=== PATIENT | male | born 1940 | race African-American/Black ===

== ENCOUNTER 2016-09-24 20:22 | Emergency (ER) | payer MEDICARE, OTHER ==
[~2016-09-24] VITALS: Ht 188 cm; Wt 79.4 kg
[~2016-09-24 20:22] MED LIST: CIPROFLOXACIN500 M2 ORAL; FLOMAX0.4 MG ORAL; KEFLEX500 MG ORAL; NKM
[2016-09-24 20:57] VITALS: BP 119/68
[2016-09-24] MEDS ORDERED: HYDROCORTISONE28 G2 TP (20:58)
[2016-09-24] MEDS ORDERED: BENADRYL25 MG ORAL (20:58)
[2016-09-24 21:05] VITALS: BP 119/68
--- NOTE | 2016-09-24 21:18 | Emergency Room Report ---
History of Present Illness General Chief Complaint: Skin Rash/Abscess Present Illness HPI The patient is a 76-year-old male presenting with total body itching which began one week prior. The patient denies any pain. Patient denies any new usage of clothing, foods, detergents or soaps. Patient denies any known allergies. The patient denies any other symptoms including shortness of breath , chest pain, headache, dizziness, throat tightness, swelling (DEBORAH DAVENPORT P.A.) Allergies: Coded Allergies: No Known Allergies (Unverified , 03/04/14) Patient History Past Medical History: see triage record Pertinent Family History: none Reviewed Nursing Documentation: PMH: Agreed, PSxH: Agreed (DEBORAH DAVENPORT P.AHero) Nursing Documentation-PMH Past Medical History: No Stated History (DEBORAH DAVENPORT P.Alayna) Review of Systems All Other Systems: negative except mentioned in HPI (DEBORAH DAVENPORT P.A.) Physical Exam Vital Signs Date Time Temp Pulse Resp B/P Pulse Ox O2 Delivery O2 Flow Rate FiO2 09/24/16 20:35 98.2 77 18 110/62 97 Room Air Sp02 EP Interpretation: reviewed, normal General Appearance: no apparent distress, alert, GCS 15, non-toxic Head: normocephalic, atraumatic Eyes: bilateral eye PERRL, bilateral eye normal inspection ENT: hearing grossly normal, normal pharynx, no angioedema, normal voice Neck: full range of motion, supple/symm/no masses Respiratory: chest non-tender, lungs clear, normal breath sounds, speaking full sentences Cardiovascular #1: regular rate, rhythm, no edema Musculoskeletal: back normal, gait/station normal, normal range of motion, non- tender Neurologic: alert, oriented x3, responsive, motor strength/tone normal, sensory intact, speech normal Psychiatric: judgement/insight normal, memory normal, mood/affect normal, no suicidal/homicidal ideation Skin: normal turgor, rash - diffuse erythematous papules with excoriation markings. No burrows Lymphatic: no adenopathy (DEBORAH DAVENPORT P.A.) Medical Decision Making PA Attestation Dr. Martinez is my supervising physician. Patient management was discussed with my supervising physician (DEBORAH DAVENPORT P.AHero) Medicare Attestation The history of Dandre Vásquez has been reviewed and management options for him have been examined and discussed by Cl Martinez. I have personally examined and interviewed the patient. (CL MARTINEZ M.D.) Diagnostic Impression: Primary Impression: Bed bug bite ER Course The patient is a 76-year-old male presenting with total body itching Ddx considered include but not limited to insect bite, scabies, contact dermatitis, eczema, cellulitis Physical exam: Afebrile. No prior distress There are erythematous papules diffusely over the chest, arms, legs, back, and scalp. No lesions between web spaces are benign knees. No burrowing. Excoriation adame of arms, legs, and upper back. The patient is discharged with a prescription for Benadryl and hydrocortisone. ER precautions are given and the patient is told he may need referral to dermatology (DEBORAH DAVENPORT) Last Vital Signs Date Time Temp Pulse Resp B/P Pulse Ox O2 Delivery O2 Flow Rate FiO2 09/24/16 21:05 98.4 72 14 119/68 98 Room Air Status: improved (DEBORAH DAVENPORT) Disposition: HOME, SELF-CARE Condition: Improved Scripts Diphenhydramine Hcl* (BENADRYL*) 25 Mg Capsule 25 MG ORAL Q6H Y for Itching, #20 CAP Prov: DEBORAH DAVENPORT 09/24/16 Hydrocortisone Acetate 1% Onit (HYDROCORTISONE 1% OINT) Y Oint 1 APPL TP Q12HR, #28 GM Prov: DEBORAH DAVENPORT 09/24/16 Patient Instructions: Rash, Bedbugs Additional Instructions: I discussed my findings with the patient. All questions and concerns have been answered. Treatment and medication compliance have been addressed. I advised the patient that they need to follow up with PMD in 3-5 days. Return to ED if symptoms worsen, new symptoms arise, or if needed for any reason. Patient verbalized understanding of discharge instructions. DEBORAH DAVENPORT Sep 24, 2016 21:18 CL MARTINEZ M.D. Sep 30, 2016 08:55
== END 2016-09-24 21:05 | disposition home or self-care (01) ==
LOC: EMR 20:50
DX: L29.9 Pruritus, unspecified (principal); T14.8 Other injury of unspecified body region; W57.XXXA Bitten or stung by nonvenomous insect and other nonvenomous arthropods, initial encounter; Y92.9 Unspecified place or not applicable; R23.8 Other skin changes
CPT/HCPCS: 99284

== ENCOUNTER 2016-10-04 18:57 | Emergency (ER) | payer MEDICARE, OTHER ==
[~2016-10-04] VITALS: Ht 188 cm; Wt 77.1 kg
[~2016-10-04 18:57] MED LIST changes: +BENADRYL25 MG ORAL; +D5 1/2NS 1,000 ML IV SCH; +HYDROCORTISONE28 G2 TP
[2016-10-04 20:30] VITALS: BP 145/70
[2016-10-04 20:48] LABS: BASOPHILS % (AUTO) 1.7 % (0.0-2.0); EOSINOPHILS % (AUTO) 2.4 % (0.0-3.0); LYMPHOCYTES % (AUTO) 18.1 % (20.0-45.0); MEAN CORPUSCULAR HEMOGLOBIN 32.7 PG (27.0-31.0); MEAN CORPUSCULAR HGB CONC 32.8 G/DL (32.0-36.0); MEAN CORPUSCULAR VOLUME 100 FL (80-99); MEAN PLATELET VOLUME 8.8 FL (6.5-10.1); MONOCYTES % (AUTO) 10.1 % (1.0-10.0); NEUTROPHILS % (AUTO) 67.6 % (45.0-75.0); PLATELET COUNT 292 K/UL (150-450); RED CELL DISTRIBUTION WIDTH 14.8 % (11.6-14.8); WHITE BLOOD COUNT 9.6 K/UL (4.8-10.8)
[2016-10-04 20:59] LABS: INR 1.1 (0.9-1.1); PROTHROMBIN TIME 10.7 SEC (9.30-11.50)
[2016-10-04 21:10] LABS: TROPONIN I < 0.30 ng/mL (<=0.30)
[2016-10-04 21:13] LABS: ALANINE AMINOTRANSFERASE 68 U/L (3-41); ALBUMIN/GLOBULIN RATIO 1.1 (1.0-2.7); ASPARTATE AMINO TRANSFERASE 74 U/L (5-40); CALCIUM 9.7 mg/dL (8.6-10.2); CARBON DIOXIDE 18 mEQ/L (20-30); CREATININE 1.8 mg/dL (0.7-1.2); HEMOLYSIS 0; LIPASE 73 U/L (< 60); SODIUM 138 mEQ/L (135-145); TOTAL PROTEIN 6.9 g/dL (6.6-8.7)
[2016-10-04 21:14] LABS: ANION GAP 20 (5-15); CHLORIDE 100 mEQ/L (98-107); POTASSIUM 3.9 mEQ/L (3.4-4.9)
[2016-10-04 21:25] LABS: AMMONIA 37 umol/L (16-60)
[2016-10-04] MEDS ORDERED: Mylanta II UD 30ml ORAL PRN (22:00)
[2016-10-04] MEDS ORDERED: Morphine Sulfate 2mg/ml Inj IVP PRN (22:00)
[2016-10-04] MEDS ORDERED: Miralax 17gm pkt ORAL PRN (22:00)
[2016-10-04] MEDS ORDERED: Nitroglycerin Subl 0.4mg tab (Bottle Of 25) SL PRN (22:00)
[2016-10-04 22:05] LABS: BILIRUBIN,DIRECT 20.5 mg/dL (0.1-0.3)
[2016-10-04 22:30] VITALS: BP 149/75
[2016-10-04 23:10] VITALS: BP 124/84
[2016-10-05 00:15] VITALS: BP 133/86
--- NOTE | 2016-10-05 04:57 | Emergency Room Report ---
History of Present Illness General Chief Complaint: General Complaint Source: Patient Present Illness HPI Patient presents as someone told him his eyes were yellow. 3 weeks ago, he started having itching. He felt this was due to pulling up a carpet which appeared to have mold. Seen here and dx beg bug bite (09/24) - generalized itching - started 1 week prior. Recently, urine dark and stools beige. No recent travel or raw seafood. No exposure to carbon tetrachloride. No fevers, NVD, cough, sore throat, weakness, extremity pain, palpitations, depression, dizziness, chest pain, abdominal distension. 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 Nursing Documentation: PMH: Agreed, PSxH: Agreed Review of Systems All Other Systems: negative except mentioned in HPI Physical Exam Vital Signs Date Time Temp Pulse Resp B/P Pulse Ox O2 Delivery O2 Flow Rate FiO2 10/04/16 19:07 98.2 86 20 152/66 100 Room Air Sp02 EP Interpretation: reviewed, normal General Appearance: well appearing, no apparent distress, GCS 15 Head: normocephalic Eyes: bilateral eye PERRL, bilateral eye scleral icterus ENT: moist mucus membranes Neck: supple, no bony tend, supple/symm/no masses Respiratory: chest non-tender, lungs clear, normal breath sounds Cardiovascular #1: regular rate, rhythm, no edema Cardiovascular #2: 2+ radial (R) Gastrointestinal: non tender, soft, no mass, no organomegaly, non-distended, no guarding, no rebound Musculoskeletal: normal inspection, digits/nails normal, gait/station normal, normal range of motion Neurologic: alert, oriented x3, grossly normal - josias asterixis Psychiatric: mood/affect normal Skin: jaundice Medical Decision Making Diagnostic Impression: Primary Impression: Obstructive jaundice Additional Impressions: renal failure Suspected malignant neoplasm ER Course Patient presents with painless jaundice. Ddx: duodenal mass, prior stone, PBC, hepatitis amongst others. Emergent evaluation with labs, EKG, CT of abdomen and pelvis. Unexpected renal failure. Elevated bili and LFTs. There are no prior labs to compare. CT with hepatic duct dilatation. Discussed with radiologist. She suggests ERCP. Patient needs further evaluation and continued IV hydration. Advised patient of risk of not coming into the hospital - told of risk of . He understands but states he has to pay the rent. Signed out AMA stating that he would return tomorrow. Laboratory Tests Test 10/04/16 20:26 White Blood Count 9.6 K/UL (4.8-10.8) Red Blood Count 4.20 M/UL (4.70-6.10) L Hemoglobin 13.7 G/DL (14.2-18.0) L Hematocrit 41.8 % (42.0-52.0) L Mean Corpuscular Volume 100 FL (80-99) H Mean Corpuscular Hemoglobin 32.7 PG (27.0-31.0) H Mean Corpuscular Hemoglobin Concent 32.8 G/DL (32.0-36.0) Red Cell Distribution Width 14.8 % (11.6-14.8) Platelet Count 292 K/UL (150-450) Mean Platelet Volume 8.8 FL (6.5-10.1) Neutrophils (%) (Auto) 67.6 % (45.0-75.0) Lymphocytes (%) (Auto) 18.1 % (20.0-45.0) L Monocytes (%) (Auto) 10.1 % (1.0-10.0) H Eosinophils (%) (Auto) 2.4 % (0.0-3.0) Basophils (%) (Auto) 1.7 % (0.0-2.0) Prothrombin Time 10.7 SEC (9.30-11.50) Prothrombin Time INR 1.1 (0.9-1.1) PTT 28 SEC (23-33) Sodium Level 138 mEQ/L (135-145) Potassium Level 3.9 mEQ/L (3.4-4.9) Chloride Level 100 mEQ/L (98-107) Carbon Dioxide Level 18 mEQ/L (20-30) L Anion Gap 20 (5-15) H Blood Urea Nitrogen 30 mg/dL (7-23) H Creatinine 1.8 mg/dL (0.7-1.2) H Estimate Glomerular Filtration Rate mL/min (>60) Glucose Level 112 mg/dL (74-106) H Calcium Level 9.7 mg/dL (8.6-10.2) Total Bilirubin 29.7 mg/dL (0.0-1.2) H Direct Bilirubin 20.5 mg/dL (0.1-0.3) H Aspartate Amino Transferase (AST) 74 U/L (5-40) H Alanine Aminotransferase (ALT) 68 U/L (3-41) H Alkaline Phosphatase 352 U/L (40-129) H Ammonia 37 umol/L (16-60) Troponin I < 0.30 ng/mL (<=0.30) Total Protein 6.9 g/dL (6.6-8.7) Albumin 3.7 g/dL (3.5-5.2) Globulin 3.2 g/dL Albumin/Globulin Ratio 1.1 (1.0-2.7) Lipase 73 U/L (< 60) H CT/MRI/US Diagnostic Results CT/MRI/US Diagnostic Results : Imaging Test Ordered: abdomen and pelvis Impression Impression: Marked dilatation of the intrahepatic bile ducts and common hepatic duct, distended gallbladder. Normal caliber common bile duct. Although an obstructing lesion is not demonstrated, findings are consistent with obstruction at the level of the junction of the common hepatic duct and cystic duct, possibly from occult neoplasm. Consider ERCP for further evaluation Appearance of the ascending colon suggestive of mural pneumatosis. Suspect that this is pseudo-pneumatosis secondary to air between the interface between feces and the colon wall, particularly given the absence of portal venous gas. COPD Diverticulosis. No evidence of diverticulitis [id number] sliding-type hiatal hernia Mild right hydronephrosis and proximal hydroureter, without apparent obstructing lesion, significance/etiology uncertain Degenerative changes of the spine and hips. Last Vital Signs Date Time Temp Pulse Resp B/P Pulse Ox O2 Delivery O2 Flow Rate FiO2 10/05/16 00:15 81 22 131/86 100 Room Air 10/05/16 00:15 98.1 Status: improved Disposition: AGAINST MEDICAL ADVICE Condition: Serious Patient Instructions: Acute Kidney Injury, Jaundice, Adult Additional Instructions: I wanted you to stay in the hospital. Return to the hospital as soon as possible. You need to have studies to find the cause of these problems. Neal Ferrer M.D. Oct 05, 2016 04:57
[2016-10-05] MEDS ORDERED: Heparin 5000 units/ml inj SUBQ SCH (09:00)
--- NOTE | 2016-10-05 09:01 | Diagnostic Imaging Report ---
Indication: Is abdominal distention, jaundice, fatigue x3 days Technique: Spiral acquisitions obtained through the abdomen and pelvis. Patient given oral contrast. No IV contrast utilized, due to history of renal insufficiency.. Multiplanar reconstructions were generated. Total dose length product 699 mGycm. CTDIvol(s) 13 mGy Comparison: None Findings: There is marked dilatation of the intrahepatic bile ducts and common hepatic duct. The gallbladder is distended. There is no distention of the common bile duct, however. The gallbladder distention results in extrinsic compression of the duodenum. 2 small densities are seen between the duodenal wall and the pancreatic head. Significance of these are uncertain. No definite pancreatic mass or gallstones demonstrated. There is colonic diverticulosis. There is questionably pneumatosis of the ascending colon, although this could be an artifact of the interface between stool and the colon wall is very focal. No portal vein gas is demonstrated. The appendix is not definitely demonstrated, but there are no findings to suggest acute appendicitis. No small bowel distention. No small bowel wall thickening. No free or loculated intraperitoneal air or fluid is evident. There is a small to moderate size sliding-type hiatal hernia. Lack of IV contrast limits assessment of solid organs. No definite focal liver lesion is demonstrated. No definite focal pancreatic lesion demonstrated. The spleen, adrenals are unremarkable. There is mild right hydronephrosis and proximal hydroureter, gradually tapering to normal caliber distal ureter. No definite obstructing lesion is demonstrated. The left renal collecting system and ureter unremarkable. No focal renal mass demonstrated. No retroperitoneal or mesenteric mass or adenopathy area the prostate is enlarged. No pelvic mass or adenopathy otherwise. The lung bases demonstrate hyperinflation. There are degenerative changes of the lumbar spine and hips. Impression: Marked dilatation of the intrahepatic bile ducts and common hepatic duct, distended gallbladder. Normal caliber common bile duct. Although an obstructing lesion is not demonstrated, findings are consistent with obstruction at the level of the junction of the common hepatic duct and cystic duct, possibly from occult neoplasm. Consider ERCP for further evaluation Appearance of the ascending colon suggestive of mural pneumatosis. Suspect that this is pseudo-pneumatosis secondary to air between the interface between feces and the colon wall, particularly given the absence of portal venous gas. COPD Diverticulosis. No evidence of diverticulitis [id number]-[id number] sliding-type hiatal hernia Mild right hydronephrosis and proximal hydroureter, without apparent obstructing lesion, significance/etiology uncertain Degenerative changes of the spine and hips. This agrees with the preliminary interpretation provided overnight by [facility] teleradiology service. The CT scanner at [facility] is accredited by the [employer] and the scans are performed using protocols designed to limit radiation exposure to as low as reasonably achievable to attain images of sufficient resolution adequate for diagnostic evaluation.
[2016-10-06] MEDS ORDERED: NKM (06:49)
== END 2016-10-05 01:20 | disposition left against medical advice (07) ==
LOC: EMR 20:46
DX: K83.1 Obstruction of bile duct (principal); N19 Unspecified kidney failure; J44.9 Chronic obstructive pulmonary disease, unspecified; K57.90 Diverticulosis of intestine, part unspecified, without perforation or abscess without bleeding; K44.9 Diaphragmatic hernia without obstruction or gangrene; N13.30 Unspecified hydronephrosis; G31.89 Other specified degenerative diseases of nervous system
CPT/HCPCS: 36415; 74176; 80053; 82140; 82248; 83690; 84484; 85025; 85610; 85730; 96374; 96375

== ENCOUNTER 2016-10-06 05:20 | Inpatient (IN) | payer MEDICARE, OTHER ==
[~2016-10-06] VITALS: Ht 188 cm; Wt 74.8 kg
[~2016-10-06 05:20] MED LIST changes: -D5 1/2NS 1,000 ML IV SCH
--- NOTE | 2016-10-06 05:41 | Emergency Room Report ---
History of Present Illness General Chief Complaint: General Complaint Source: Patient Present Illness HPI Patient is a 76-year-old male who presented after having increased generalized jaundice and itchiness. Patient gradual onset of symptoms. Patient recently been seen in the hospital and was noted to have evidence of obstructive jaundice. The patient left the hospital AGAINST MEDICAL ADVICE. Patient had been having itching for several weeks. He denied any recent fever he had not been vomiting. Allergies: Coded Allergies: No Known Allergies (Unverified , 03/04/14) Patient History Reviewed Nursing Documentation: PMH: Agreed, PSxH: Agreed Nursing Documentation-PMH Past Medical History: No Stated History Review of Systems All Other Systems: negative except mentioned in HPI Physical Exam Sp02 EP Interpretation: reviewed, normal General Appearance: normal inspection, well appearing, no apparent distress, alert, GCS 15 Head: atraumatic Eyes: bilateral eye scleral icterus ENT: normal ENT inspection, hearing grossly normal, normal voice Neck: normal inspection, full range of motion, supple, no bony tend Respiratory: normal inspection, lungs clear, normal breath sounds, no respiratory distress, no retraction, no wheezing Cardiovascular #1: regular rate, rhythm, no edema Gastrointestinal: normal inspection, normal bowel sounds, non tender, soft, no guarding, no hernia Genitourinary: no CVA tenderness Musculoskeletal: normal inspection, back normal, normal range of motion Neurologic: normal inspection, alert, responsive, speech normal Psychiatric: normal inspection, judgement/insight normal, mood/affect normal Skin: normal inspection, no rash, jaundice Medical Decision Making Diagnostic Impression: Primary Impression: Obstructive jaundice Additional Impressions: Bilirubinemia Suspected malignant neoplasm ER Course Patient presented for skin rash. Differential diagnosis included was not limited to obstructive jaundice, common duct stone, hemolysis, pancreatic head mass among others.Because of complexity of patient's case laboratory testing and imaging studies were ordered. The patient was noted to have prior imaging studies which showed evidence of intrahepatic duct dilation. Patient was noted to have a markedly elevated bilirubin. The patient was noted to have a recent CT imaging which showed markedly dilation of gallbladder as well as the intrahepatic ducts. Patient was discussed with Dr. Cristino Kang for inpatient management. Labs Test 10/06/16 05:50 10/06/16 06:25 White Blood Count 9.6 K/UL (4.8-10.8) Red Blood Count 4.39 M/UL (4.70-6.10) Hemoglobin 14.1 G/DL (14.2-18.0) Hematocrit 43.6 % (42.0-52.0) Mean Corpuscular Volume 99 FL (80-99) Mean Corpuscular Hemoglobin 32.1 PG (27.0-31.0) Mean Corpuscular Hemoglobin Concent 32.4 G/DL (32.0-36.0) Red Cell Distribution Width 15.6 % (11.6-14.8) Platelet Count 295 K/UL (150-450) Mean Platelet Volume 8.3 FL (6.5-10.1) Neutrophils (%) (Auto) 73.1 % (45.0-75.0) Lymphocytes (%) (Auto) 15.5 % (20.0-45.0) Monocytes (%) (Auto) 8.5 % (1.0-10.0) Eosinophils (%) (Auto) 1.5 % (0.0-3.0) Basophils (%) (Auto) 1.4 % (0.0-2.0) Prothrombin Time 10.7 SEC (9.30-11.50) Prothromb Time International Ratio 1.1 (0.9-1.1) Activated Partial Thromboplast Time 29 SEC (23-33) Sodium Level 139 mEQ/L (135-145) Potassium Level 3.7 mEQ/L (3.4-4.9) Chloride Level 102 mEQ/L (98-107) Carbon Dioxide Level 20 mEQ/L (20-30) Anion Gap 17 (5-15) Blood Urea Nitrogen 25 mg/dL (7-23) Creatinine 1.7 mg/dL (0.7-1.2) Estimat Glomerular Filtration Rate mL/min (>60) Glucose Level 103 mg/dL (74-106) Calcium Level 9.2 mg/dL (8.6-10.2) Total Bilirubin 29.4 mg/dL (0.0-1.2) Aspartate Amino Transf (AST/SGOT) 65 U/L (5-40) Alanine Aminotransferase (ALT/SGPT) 65 U/L (3-41) Alkaline Phosphatase 316 U/L (40-129) Total Protein 6.4 g/dL (6.6-8.7) Albumin 3.3 g/dL (3.5-5.2) Globulin 3.1 g/dL Albumin/Globulin Ratio 1.0 (1.0-2.7) Lipase 60 U/L (< 60) Urine Color Brown Urine Appearance Clear Urine pH 6.5 (4.5-8.0) Urine Specific [place] 1.015 (1.005-1.035) Urine Protein 2+ (NEGATIVE) Urine Glucose (UA) Negative (NEGATIVE) Urine Ketones Negative (NEGATIVE) Urine Occult Blood 2+ (NEGATIVE) Urine Nitrite Negative (NEGATIVE) Urine Bilirubin 3+ (NEGATIVE) Urine Ictotest Positive Urine Urobilinogen 8 MG/DL (0.0-1.0) Urine Leukocyte Esterase 1+ (NEGATIVE) Urine RBC 2-4 /HPF (0 - 0) Urine WBC 2-4 /HPF (0 - 0) Urine Squamous Epithelial Cells Occasional /LPF Urine Bacteria Few /HPF (NONE) Urine Granular Casts 2-4 /LPF (NONE) Status: unchanged Disposition: ADMITTED INPATIENT Condition: Emory Griffiths Oct 06, 2016 05:41
[2016-10-06 06:19] LABS: BASOPHILS % (AUTO) 1.4 % (0.0-2.0); EOSINOPHILS % (AUTO) 1.5 % (0.0-3.0); LYMPHOCYTES % (AUTO) 15.5 % (20.0-45.0); MEAN CORPUSCULAR HEMOGLOBIN 32.1 PG (27.0-31.0); MEAN CORPUSCULAR HGB CONC 32.4 G/DL (32.0-36.0); MEAN CORPUSCULAR VOLUME 99 FL (80-99); MEAN PLATELET VOLUME 8.3 FL (6.5-10.1); MONOCYTES % (AUTO) 8.5 % (1.0-10.0); NEUTROPHILS % (AUTO) 73.1 % (45.0-75.0); PLATELET COUNT 295 K/UL (150-450); RED BLOOD COUNT 4.39 M/UL (4.70-6.10); RED CELL DISTRIBUTION WIDTH 15.6 % (11.6-14.8); WHITE BLOOD COUNT 9.6 K/UL (4.8-10.8)
[2016-10-06 06:34] VITALS: BP 133/69
[2016-10-06 06:35] LABS: ALANINE AMINOTRANSFERASE 65 U/L (3-41); ANION GAP 17 (5-15); ASPARTATE AMINO TRANSFERASE 65 U/L (5-40); CALCIUM 9.2 mg/dL (8.6-10.2); CARBON DIOXIDE 20 mEQ/L (20-30); CHLORIDE 102 mEQ/L (98-107); CREATININE 1.7 mg/dL (0.7-1.2); HEMOLYSIS 0; LIPASE 60 U/L (< 60); POTASSIUM 3.7 mEQ/L (3.4-4.9); SODIUM 139 mEQ/L (135-145); TOTAL PROTEIN 6.4 g/dL (6.6-8.7)
[2016-10-06 06:40] LABS: APPEARANCE,URINE CLEAR; KETONES,URINE NEGATIVE (NEGATIVE); LEUKOCYTE ESTERASE ,URINE 1+ (NEGATIVE); NITRITE,URINE NEGATIVE (NEGATIVE); PH,URINE 6.5 (4.5-8.0); PROTEIN,URINE 2+ (NEGATIVE); UROBILINOGEN,URINE 8 MG/DL (0.0-1.0)
[2016-10-06 06:44] LABS: INR 1.1 (0.9-1.1); PROTHROMBIN TIME 10.7 SEC (9.30-11.50)
[2016-10-06] MEDS ORDERED: NKM (06:49)
[2016-10-06 06:53] LABS: BACTERIA,URINE FEW /HPF; SQUAMOUS EPITHELIAL CELL,UR OCCASIONAL /LPF (NONE/OCC)
[2016-10-06 06:54] LABS: ICTOTEST POSITIVE
[2016-10-06] MEDS ORDERED: HydrOXYzine 25mg tab ORAL ONE (07:00)
[2016-10-06] MEDS ORDERED: DiphenhydrAMINE 50mg/ml Inj IVP ONE (07:00)
[2016-10-06 07:19] VITALS: BP 146/81
[2016-10-06 07:28] LABS: BILIRUBIN,DIRECT > 20.0 mg/dL (0.1-0.3)
[2016-10-06 09:17] VITALS: BP 118/72
[2016-10-06] MEDS: DiphenhydrAMINE 50mg/ml Inj IVP PRN ×2 (10:52→18:48)
[2016-10-06] MEDS: Pantoprazole Inj IVP SCH (10:52)
[2016-10-06] MEDS: D5NS 1,000 ML IV SCH ×2 (10:59→22:40)
[2016-10-06 11:38] VITALS: BP 121/95
--- NOTE | 2016-10-06 13:48 | GI Initial Consult Note ---
Mansi Jordan N.P. 10/06/16 1348: History of Present Illness General Date patient seen: Oct 06, 2016 Time patient seen: 10:00 Reason for Hospitalization: General Complaint Referring physician: BROOKS KIM Reason for Consultation: OBSTRUCTIVE JAUNDICE Present Illness HPI Patient is a 76-year-old male who presented after having increased generalized jaundice and itchiness. Patient gradual onset of symptoms. Patient recently been seen in the hospital and was noted to have evidence of obstructive jaundice. The patient left the hospital AGAINST MEDICAL ADVICE. Patient had been having itching for several weeks. He denied any recent fever he had not been vomiting. GI CONSULT: HPI as noted above. Pt seen on floor, awake A&Ox4 NAD c/o of initial abdominal pain that is now tolerable. Denies any abdominal pain, N/V, diarrhea or constipation at this time. C/o of generalized pruritus with min relief from PO Benadryl. Patient presents today with obstructive jaundice, hypoalbuminemia, and elevated CEA and CA19-9. Unknown history of any endoscopic procedures. Home Meds Active Scripts Diphenhydramine Hcl* (BENADRYL*) 25 Mg Capsule, 25 MG ORAL Q6H Y for Itching, # 20 CAP Prov:TERZIAN,DEBORAH P.A. 09/24/16 Hydrocortisone Acetate 1% Onit (HYDROCORTISONE 1% OINT) Y Oint, 1 APPL TP Q12HR , #28 GM Prov:TERZIAN,DEBORAH P.A. 09/24/16 Reported Medications No Known Medications* (NKM - No Known Medications*) ., 0 ., 0 Refills 10/06/16 No Known Medications* (NKM - No Known Medications*) ., 0 ., 0 Refills 03/05/14 Med list reviewed/reconciled: Yes Allergies: Coded Allergies: No Known Allergies (Unverified , 03/04/14) Patient History History Provided By: Patient, Medical Record [facility] Narrative Past Medical History: No Stated History Social History: Denies: alcohol use, drug use, other, smoking Review of Systems All Other Systems: negative except mentioned in HPI Physical Exam Vital Signs Date Time Temp Pulse Resp B/P Pulse Ox O2 Delivery O2 Flow Rate FiO2 10/06/16 05:29 97.2 75 16 133/73 100 Room Air Sp02 EP Interpretation: reviewed Labs Laboratory Tests Test 10/06/16 05:50 10/06/16 06:25 White Blood Count 9.6 K/UL (4.8-10.8) Red Blood Count 4.39 M/UL (4.70-6.10) L Hemoglobin 14.1 G/DL (14.2-18.0) L Hematocrit 43.6 % (42.0-52.0) Mean Corpuscular Volume 99 FL (80-99) Mean Corpuscular Hemoglobin 32.1 PG (27.0-31.0) H Mean Corpuscular Hemoglobin Concent 32.4 G/DL (32.0-36.0) Red Cell Distribution Width 15.6 % (11.6-14.8) H Platelet Count 295 K/UL (150-450) Mean Platelet Volume 8.3 FL (6.5-10.1) Neutrophils (%) (Auto) 73.1 % (45.0-75.0) Lymphocytes (%) (Auto) 15.5 % (20.0-45.0) L Monocytes (%) (Auto) 8.5 % (1.0-10.0) Eosinophils (%) (Auto) 1.5 % (0.0-3.0) Basophils (%) (Auto) 1.4 % (0.0-2.0) Prothrombin Time 10.7 SEC (9.30-11.50) Prothromb Time International Ratio 1.1 (0.9-1.1) Activated Partial Thromboplast Time 29 SEC (23-33) Sodium Level 139 mEQ/L (135-145) Potassium Level 3.7 mEQ/L (3.4-4.9) Chloride Level 102 mEQ/L (98-107) Carbon Dioxide Level 20 mEQ/L (20-30) Anion Gap 17 (5-15) H Blood Urea Nitrogen 25 mg/dL (7-23) H Creatinine 1.7 mg/dL (0.7-1.2) H Estimat Glomerular Filtration Rate mL/min (>60) Glucose Level 103 mg/dL (74-106) Calcium Level 9.2 mg/dL (8.6-10.2) Total Bilirubin 29.4 mg/dL (0.0-1.2) H Direct Bilirubin > 20.0 mg/dL (0.1-0.3) H Aspartate Amino Transf (AST/SGOT) 65 U/L (5-40) H Alanine Aminotransferase (ALT/SGPT) 65 U/L (3-41) H Alkaline Phosphatase 316 U/L (40-129) H Total Protein 6.4 g/dL (6.6-8.7) L Albumin 3.3 g/dL (3.5-5.2) L Globulin 3.1 g/dL Albumin/Globulin Ratio 1.0 (1.0-2.7) Lipase 60 U/L (< 60) Carcinoembryonic Antigen 8.2 ng/mL H CA 19-9 Antigen 328.8 U/mL (< 37) H Urine Color Brown Urine Appearance Clear Urine pH 6.5 (4.5-8.0) Urine Specific Schwertner 1.015 (1.005-1.035) Urine Protein 2+ (NEGATIVE) H Urine Glucose (UA) Negative (NEGATIVE) Urine Ketones Negative (NEGATIVE) Urine Occult Blood 2+ (NEGATIVE) H Urine Nitrite Negative (NEGATIVE) Urine Bilirubin 3+ (NEGATIVE) H Urine Ictotest Positive Urine Urobilinogen 8 MG/DL (0.0-1.0) H Urine Leukocyte Esterase 1+ (NEGATIVE) H Urine RBC 2-4 /HPF (0 - 0) H Urine WBC 2-4 /HPF (0 - 0) Urine Squamous Epithelial Cells Occasional /LPF Urine Bacteria Few /HPF (NONE) Urine Granular Casts 2-4 /LPF (NONE) H General Appearance: well appearing, no apparent distress, alert, thin, other - jaundice Head: normocephalic EENT: normal ENT inspection Neck: supple Respiratory: normal breath sounds, no respiratory distress Cardiovascular: normal rate Gastrointestinal: normal inspection, non tender, soft Rectal: deferred Musculoskeletal: normal inspection, back normal Neurologic: normal inspection, alert, oriented x3, responsive Psychiatric: normal inspection, judgement/insight normal Skin: normal inspection, no rash, warm/dry Lymphatic: normal inspection, no adenopathy Current Medications Current Medications Medications (Trade) Dose Ordered Sig/Tam Route PRN Reason Start Time Stop Time Status Last Admin Dose Admin Dextrose/Sodium Chloride (D5ns) 1,000 ml @ 75 mls/hr [id number] IV 10/06/16 09:30 11/05/16 09:29 10/06/16 10:59 Diphenhydramine HCl (Benadryl) 50 mg Q6H PRN IVP Itching 10/06/16 09:00 11/05/16 08:59 10/06/16 10:52 Pantoprazole (Protonix) 40 mg DAILY IVP 10/06/16 09:00 11/05/16 08:59 10/06/16 10:52 GI: Plan Problems: (1) Hypoalbuminemia (2) Suspected malignant neoplasm (3) Obstructive jaundice (4) Bilirubinemia Plan elevated CEA >> 8.2 elevated CA19.9 >> 328.8 pt scheduled for ERCP tomorrow - CLD, NPO @ [place]. fu abdominal US cont ppi monitor LFTs fu labs recommend oncology consult Discussed with Dr. Clifford. Thank you for referring this patient, we will follow. SCOTT CLIFFORD 10/08/16 0803: History of Present Illness General Reason for Hospitalization: General Complaint Present Illness Home Meds Active Scripts Diphenhydramine Hcl* (BENADRYL*) 25 Mg Capsule, 25 MG ORAL Q6H Y for Itching, # 20 CAP Prov:TERZIAN,DEBORAH P.A. 09/24/16 Hydrocortisone Acetate 1% Onit (HYDROCORTISONE 1% OINT) Y Oint, 1 APPL TP Q12HR , #28 GM Prov:TERZIAN,DEBORAH P.A. 09/24/16 Reported Medications No Known Medications* (NKM - No Known Medications*) ., 0 ., 0 Refills 10/06/16 No Known Medications* (NKM - No Known Medications*) ., 0 ., 0 Refills 03/05/14 Allergies: Coded Allergies: No Known Allergies (Unverified , 03/04/14) GI: Plan Plan The patient was seen and examined at bedside and all new and available data was reviewed in the patients chart. I agree with the above findings, impression and plan. (Patient seen earlier today. Signature stamp does not reflect patient encounter time.). -Scott Jordan,Mansi Luke N.PHero Oct 06, 2016 13:48 SCOTT CLIFFORD Oct 08, 2016 08:03
[2016-10-06 16:00] VITALS: BP 111/63
--- NOTE | 2016-10-06 16:06 | Diagnostic Imaging Report ---
Indication:Abdominal pain Technique: Grayscale and duplex Doppler imaging of the abdomen performed. Comparison: None Findings: Intrahepatic biliary ducts are prominent. CBD is dilated (17 mm) but the measurements noted are within the liver indicating this is probably the common hepatic duct. CT performed recently showed similar findings. There was concern for obstruction at the level of the common hepatic/common bile duct. Gallbladder is dilated. Gallbladder sludge noted. There is no ascites. There are bilateral renal cysts present. Liver is echogenic. Spleen is normal size. Pancreas and aorta are poorly seen. Impression: Moderate to severe dilatation of the intrahepatic biliary ducts. Biliary obstruction is suspected which may be on the basis of a tumor at the obed hepatis or other endo-biliary disease. ERCP is recommended. Bilateral renal cysts Gallbladder sludge
[2016-10-06 20:00] VITALS: BP 125/69
[2016-10-06] MEDS: Heparin 5000 units/ml inj SUBQ SCH (20:13)
[2016-10-06] MEDS: HydrOXYzine 50mg cap ORAL PRN (20:56)
[2016-10-07] VITALS (12 sets, daily range): BP systolic 105–135; BP diastolic 56–89
--- NOTE | 2016-10-07 03:08 | History and Physical Report ---
DATE OF ADMISSION: 10/06/2016 CHIEF COMPLAINT: Painless jaundice. History Of Present Illness: This is a 76-year-old male who presents with a week's worth of jaundice. According to the patient, he is well. He 00:18 presented to the emergency room with a complaint of itching. He left against medical advice at that time and return because of progressive jaundice. On evaluation in the emergency room, the patient had a total bilirubin of 29, creatinine of 1.7, and elevated CA-19 and CEA levels. Ultrasound of the abdomen revealed moderate to serial dilation of the intrahepatic biliary ducts. The patient is now admitted for further evaluation and care. He denies fevers or chills. He has had a 10 pound weight loss in the last month. Denies abdominal pain and diarrhea. PAST MEDICAL HISTORY: None. PAST SURGICAL HISTORY: Includes appendectomy. CURRENT MEDICATIONS: Reconciled and reviewed. ALLERGIES: None. SOCIAL HISTORY: Negative for tobacco, ethanol, or drugs. FAMILY HISTORY: None. REVIEW OF SYSTEMS: General: No fever or chills. Positive for weight loss. HEENT: No headaches or visual changes. Cardiopulmonary: No chest pain or shortness of breath. GI: No nausea or vomiting. Genitourinary: No urgency or frequency. Muscular: No muscular pain or swelling. Neurologic: No evidence of seizures. PHYSICAL EXAMINATION: VITAL SIGNS: Temperature 98.6 degrees, pulse 67, respirations 18, and blood pressure 111/63. GENERAL: The patient is a well-developed male. He is thin and frail. HEENT: He is icteric and and jaundiced. His pupils are equal, round, and reactive to light. Oropharynx is clear. NECK: Supple. HEART: Regular rate and rhythm. LUNGS: Clear. ABDOMEN: Soft, nontender, and nondistended. EXTREMITIES: Without cyanosis or edema. LABORATORY AND DIAGNOSTIC DATA: Creatinine was 1.7. CEA was 8.2. CA-19 was 328. AST was 65 and ALT was 65. Total bilirubin 29.4. Urine showed 3+ bilirubin and 2 to 4 WBCs. ASSESSMENT: This is a 76-year-old male that presents with painless jaundice worrisome for an intrahepatic malignancy or a possible pancreatic malignancy causing biliary obstruction. We will plan ERCP tomorrow. Gentle hydration. Benadryl for itching. Plan of care ERCP. CAT scan also been ordered . Cristino Kang M.D. DR: Edward JOB#: [id number] CC:
[2016-10-07 07:06] LABS: INR 1.1 (0.9-1.1); PROTHROMBIN TIME 11.1 SEC (9.30-11.50)
[2016-10-07 07:23] LABS: BASOPHILS % (AUTO) 0.6 % (0.0-2.0); EOSINOPHILS % (AUTO) 2.7 % (0.0-3.0); LYMPHOCYTES % (AUTO) 12.7 % (20.0-45.0); MEAN CORPUSCULAR HEMOGLOBIN 31.6 PG (27.0-31.0); MEAN CORPUSCULAR HGB CONC 32.5 G/DL (32.0-36.0); MEAN CORPUSCULAR VOLUME 97 FL (80-99); MEAN PLATELET VOLUME 9.1 FL (6.5-10.1); MONOCYTES % (AUTO) 11.6 % (1.0-10.0); NEUTROPHILS % (AUTO) 72.4 % (45.0-75.0); PLATELET COUNT 264 K/UL (150-450); RED BLOOD COUNT 3.66 M/UL (4.70-6.10); RED CELL DISTRIBUTION WIDTH 15.2 % (11.6-14.8); WHITE BLOOD COUNT 8.5 K/UL (4.8-10.8)
[2016-10-07] MEDS: Heparin 5000 units/ml inj SUBQ SCH ×2 (09:00→20:38)
[2016-10-07] MEDS: Pantoprazole Inj IVP SCH (09:20)
[2016-10-07 09:42] LABS: ALANINE AMINOTRANSFERASE 51 U/L (3-41); ALBUMIN/GLOBULIN RATIO 0.9 (1.0-2.7); ANION GAP 16 (5-15); ASPARTATE AMINO TRANSFERASE 55 U/L (5-40); CALCIUM 8.9 mg/dL (8.6-10.2); CARBON DIOXIDE 21 mEQ/L (20-30); CHLORIDE 102 mEQ/L (98-107); CREATININE 1.5 mg/dL (0.7-1.2); HEMOLYSIS 1; POTASSIUM 3.8 mEQ/L (3.4-4.9); SODIUM 139 mEQ/L (135-145); TOTAL PROTEIN 5.5 g/dL (6.6-8.7)
[2016-10-07] MEDS ORDERED: Indomethacin 50mg Supp ONE (10:05)
[2016-10-07] MEDS ORDERED: Iothalamate Meglumine 60% 30ML INJ ONE (10:05)
[2016-10-07] MEDS ORDERED: Tubing IV Extension IV ONE (10:26)
[2016-10-07] MEDS ORDERED: NS 550ML IV ONE (10:26)
--- NOTE | 2016-10-07 10:33 | Pre-Procedure Note/Attestation ---
Pre-Procedure Note/Attestation Complete Prior to Procedure Planned Procedure: not applicable Procedure Narrative: ercp Indications for Procedure Pre-Operative Diagnosis: татьяна Attestation I attest that I discussed the nature of the procedure; its benefits; risks and complications; and alternatives (and the risks and benefits of such alternatives ), prior to the procedure, with the patient (or the patient's legal patient accounting representative). I attest that, if there was a reasonable possibility of needing a blood transfusion, the patient (or the patient's legal patient accounting representative) was given the [facility] standardized written summary, pursuant to the [facility] Blood Safety Act ([place] Health and Safety Code # 1645, as amended). I attest that I re-evaluated the patient just prior to the surgery and that there has been no change in the patient's H&P, except as documented below: AURY SAMS Oct 07, 2016 10:33
[2016-10-07] MEDS ORDERED: LR 1000ml 1,000 ML IVLG SCH (10:56)
--- NOTE | 2016-10-07 10:56 | Anethesia Preoperative Eval ---
Anesthesia Pre-op PMH/ROS General Date of Evaluation: Oct 07, 2016 Time of Evaluation: 10:14 Anesthesiologist: Shital ASA Score: ASA 3 Mallampati Score Class I : Soft palate, uvula, fauces, pillars visible Class II: Soft palate, uvula, fauces visible Class III: Soft palate, base of uvula visible Class IV: Only hard plate visible Mallampati Classification: Class II Surgeon: Darrin Diagnosis: Painless Jaundice Surgical Procedure: ERCP Anesthesia History: none Family History: no anesthesia problems Allergies: Coded Allergies: No Known Allergies (Unverified , 03/04/14) Medications: see eMAR Past Medical History Gastrointestinal/Genitourinary: Reports: CRI, other - Painless Jaundice Hematology/Immune: Reports: anemia Anesthesia Pre-op Phys. Exam Physician Exam Last Vital Signs Date Time Temp Pulse Resp B/P Pulse Ox O2 Delivery O2 Flow Rate FiO2 10/07/16 08:00 98.3 78 17 118/66 98 Room Air Constitutional: NAD Neurologic: CN 2-12 intact Cardiovascular: RRR Respiratory: CTA Gastrointestinal: S/NT/ND Airway Exam Mallampati Score: Class II MO: full ROM: full Teeth: intact Anesthesia Pre-op A/P Labs Hematology Test 10/07/16 05:00 White Blood Count 8.5 K/UL (4.8-10.8) Red Blood Count 3.66 M/UL (4.70-6.10) L Hemoglobin 11.5 G/DL (14.2-18.0) L Hematocrit 35.5 % (42.0-52.0) L Mean Corpuscular Volume 97 FL (80-99) Mean Corpuscular Hemoglobin 31.6 PG (27.0-31.0) H Mean Corpuscular Hemoglobin Concent 32.5 G/DL (32.0-36.0) Red Cell Distribution Width 15.2 % (11.6-14.8) H Platelet Count 264 K/UL (150-450) Mean Platelet Volume 9.1 FL (6.5-10.1) Neutrophils (%) (Auto) 72.4 % (45.0-75.0) Lymphocytes (%) (Auto) 12.7 % (20.0-45.0) L Monocytes (%) (Auto) 11.6 % (1.0-10.0) H Eosinophils (%) (Auto) 2.7 % (0.0-3.0) Basophils (%) (Auto) 0.6 % (0.0-2.0) Coagulation Test 10/07/16 05:00 Prothrombin Time 11.1 SEC (9.30-11.50) Prothromb Time International Ratio 1.1 (0.9-1.1) Activated Partial Thromboplast Time 29 SEC (23-33) Chemistry Test 10/07/16 05:00 Sodium Level 139 mEQ/L (135-145) Potassium Level 3.8 mEQ/L (3.4-4.9) Chloride Level 102 mEQ/L (98-107) Carbon Dioxide Level 21 mEQ/L (20-30) Anion Gap 16 (5-15) H Blood Urea Nitrogen 19 mg/dL (7-23) Creatinine 1.5 mg/dL (0.7-1.2) H Estimat Glomerular Filtration Rate mL/min (>60) Glucose Level 95 mg/dL (74-106) Calcium Level 8.9 mg/dL (8.6-10.2) Total Bilirubin 24.3 mg/dL (0.0-1.2) H Direct Bilirubin Pending Aspartate Amino Transf (AST/SGOT) 55 U/L (5-40) H Alanine Aminotransferase (ALT/SGPT) 51 U/L (3-41) H Alkaline Phosphatase 256 U/L (40-129) H Total Protein 5.5 g/dL (6.6-8.7) L Albumin 2.7 g/dL (3.5-5.2) L Globulin 2.8 g/dL Albumin/Globulin Ratio 0.9 (1.0-2.7) L Risk Assessment & Plan Assessment: ASA 3 Plan: GA Status Change Before Surgery: Stanislav Wheeler MD Oct 07, 2016 10:56
[2016-10-07 10:58] LABS: BILIRUBIN,DIRECT 16.4 mg/dL (0.1-0.3)
[2016-10-07] MEDS ORDERED: Norco 5mg/325mg tab ORAL PRN (11:00)
[2016-10-07] MEDS ORDERED: Norco 7.5mg/325mg tab ORAL PRN (11:00)
[2016-10-07] MEDS ORDERED: Meperidine 25mg/ml Inj IV PRN (11:00)
[2016-10-07] MEDS ORDERED: DiphenhydrAMINE 50mg/ml Inj IVP PRN (11:00)
[2016-10-07] MEDS ORDERED: fentaNYL 100 mcg/2 mL IV PRN (11:00)
[2016-10-07] MEDS ORDERED: Atropine Inj 1mg/10ml Syr IV PRN (11:00)
[2016-10-07] MEDS ORDERED: Oxycodone/Acetaminophen 5-325 ORAL PRN (11:00)
[2016-10-07] MEDS ORDERED: Labetalol 5mg/ml 20ml vial IV PRN (11:00)
[2016-10-07] MEDS ORDERED: Metoclopramide 10mg/2ml Inj IVP PRN (11:00)
[2016-10-07] MEDS ORDERED: Midazolam 2mg/2ml Inj IVP PRN (11:00)
[2016-10-07] MEDS ORDERED: LORazepam Inj 2mg/ml 1ml IV PRN (11:00)
[2016-10-07] MEDS ORDERED: Hydromorphone 0.5mg/0.5ml inj IVP PRN (11:00)
--- NOTE | 2016-10-07 11:01 | Immediate Post-Op Evaluation ---
Immediate Post-Op Evalulation Immediate Post-Op Evalulation Procedure: ERCP Date of Evaluation: Oct 07, 2016 Time of Evaluation: 12:58 IV Fluids: 750 LR Blood Products: 0 Estimated Blood Loss: 10 Urinary Output: 0 Blood Pressure Systolic: 135 Blood Pressure Diastolic: 76 Pulse Rate: 64 Respiratory Rate: 16 O2 Sat by Pulse Oximetry: 100 Temperature (Fahrenheit): 97.7 Pain Score (1-10): 2 Nausea: No Vomiting: No Complications 0 Patient Status: awake, reacts, patent, none Hydration Status: adequate Stanislav Isaacs MD Oct 07, 2016 11:01
--- NOTE | 2016-10-07 11:02 | 48 Hour Post Anesthesia Eval ---
Post Anesthesia Evaluation Procedure: ERCP Date of Evaluation: Oct 07, 2016 Time of Evaluation: 15:12 Blood Pressure Systolic: 133 0: 74 Pulse Rate: 67 Respiratory Rate: 18 Temperature (Fahrenheit): 98.2 O2 Sat by Pulse Oximetry: 100 Airway: patent Nausea: No Vomiting: No Pain Intensity: 2 Hydration Status: adequate Cardiopulmonary Status: Stable Mental Status/LOC: patient returned to baseline Follow-up Care/Observations: 0 Post-Anesthesia Complications: 0 Follow-up care needed: ready to discharge Stanislav Isaacs MD Oct 07, 2016 11:02
[2016-10-07] MEDS: D5NS 1,000 ML IV SCH ×2 (12:10→16:15)
--- NOTE | 2016-10-07 13:06 | Endoscopy Procedure Note ---
Endoscopy Procedure Note Indication for Procedure: juandice Procedures Performed: ERCP Operative Findings/Diagnosis: biliary stricture Specimen: yes Pt Tolerated Procedure Well: Yes Estimated Blood Loss: none Anesthesiologist: Kenny Anesthesia: MAC Implant(s) used?: No 50 yrs or older w/o bx or poly: Not Applicable 10yrs. F/U not recommended: Not Applicable AURY SAMS Oct 07, 2016 13:06
--- NOTE | 2016-10-07 14:46 | General Progress Note ---
Assessment/Plan Problem List: (1) Suspected malignant neoplasm ICD Codes: C80.1 - Malignant (primary) neoplasm, unspecified SNOMED: 645710537 (2) Bed bug bite ICD Codes: W57.XXXA - Bitten or stung by nonvenomous insect and other nonvenomous arthropods, initial encounter SNOMED: 550178982, 755338744 (3) Obstructive jaundice ICD Codes: K83.8 - Other specified diseases of biliary tract SNOMED: 99187799 Status: stable, progressing Assessment/Plan follow up biopsy results monitor lfts benaadryl and atarax for itching Subjective ROS Limited/Unobtainable: No Constitutional: Reports: malaise, weakness HEENT: Reports: no symptoms Cardiovascular: Reports: no symptoms Respiratory: Reports: no symptoms Gastrointestinal/Abdominal: Reports: poor appetite Genitourinary: Reports: no symptoms Endocrine: Reports: no symptoms Hematologic/Lymphatic: Reports: no symptoms Allergies: Coded Allergies: No Known Allergies (Unverified , 03/04/14) All Systems: reviewed and negative except above Subjective d/w gi. s/p ercp and stent placement. biopsy taken, Objective Last 24 Hour Vital Signs Date Time Temp Pulse Resp B/P Pulse Ox O2 Delivery O2 Flow Rate FiO2 10/07/16 13:30 97.8 69 17 124/88 99 Room Air 10/07/16 13:15 68 16 124/88 98 Room Air 10/07/16 13:00 66 14 122/79 100 Simple Mask 6.0 10/07/16 12:55 65 13 125/75 100 Simple Mask 6.0 10/07/16 12:52 67 18 100 10/07/16 12:51 64 16 100 10/07/16 12:50 65 13 130/79 100 Simple Mask 6.0 10/07/16 12:47 97.7 66 14 135/83 100 Simple Mask 6.0 10/07/16 08:00 98.3 78 17 118/66 98 Room Air 10/07/16 04:00 97.9 79 18 117/72 99 Room Air 10/07/16 00:00 97.9 75 16 105/56 98 Room Air 10/06/16 20:00 97.7 73 16 125/69 98 Room Air 10/06/16 16:00 98.6 67 18 111/63 99 Room Air Intake and Output 10/06/16 10/07/16 19:00 07:00 Intake Total 840 ml 1110 ml Output Total 200 ml Balance 640 ml 1110 ml Intake Oral 240 ml 360 ml IV Total 600 ml 750 ml Output Urine Total 200 ml # Voids 4 # Bowel Movements 3 Laboratory Tests 10/07/16 05:00: White Blood Count 8.5, Red Blood Count 3.66L, Hemoglobin 11.5L, Hematocrit 35.5L , Mean Corpuscular Volume 97, Mean Corpuscular Hemoglobin 31.6H, Mean Corpuscular Hemoglobin Concent 32.5, Red Cell Distribution Width 15.2H, Platelet Count 264, Mean Platelet Volume 9.1, Neutrophils (%) (Auto) 72.4, Lymphocytes (%) (Auto) 12.7L, Monocytes (%) (Auto) 11.6H, Eosinophils (%) (Auto ) 2.7, Basophils (%) (Auto) 0.6, Prothrombin Time 11.1, Prothromb Time International Ratio 1.1, Activated Partial Thromboplast Time 29, Sodium Level 139, Potassium Level 3.8, Chloride Level 102, Carbon Dioxide Level 21, Anion Gap 16H, Blood Urea Nitrogen 19, Creatinine 1.5H, Estimat Glomerular Filtration Rate , Glucose Level 95, Calcium Level 8.9, Total Bilirubin 24.3H, Direct Bilirubin 16.4H, Aspartate Amino Transf (AST/SGOT) 55H, Alanine Aminotransferase (ALT/SGPT) 51H, Alkaline Phosphatase 256H, Total Protein 5.5L, Albumin 2.7L, Globulin 2.8, Albumin/Globulin Ratio 0.9L Height (Feet): 6 Height (Inches): 2.00 Weight (Pounds): 165 General Appearance: WD/WN, alert Neck: supple Cardiovascular: regular rhythm Respiratory/Chest: lungs clear Abdomen: normal bowel sounds, non tender, soft, no organomegaly Edema: no edema noted Arm (L), no edema noted Arm (R), no edema noted Leg (L), no edema noted Leg (R), no edema noted Pedal (L), no edema noted Pedal (R), no edema noted Generalized BROOKS KIM Oct 07, 2016 14:46
[2016-10-07] MEDS: Piperacillin/Tazobactam 3.375 GM in D5W 110 ML IVPB SCH ×2 (16:13→22:26)
--- NOTE | 2016-10-07 17:08 | Diagnostic Imaging Report ---
Indication: Jaundice, itching, abnormal CT scan, elevated bilirubin Technique: Digital intraoperative images Comparison: Reference made to CT scan of 10/04/2016 Findings: Intraoperative images demonstrate normal caliber common bile duct, irregular stricture of the common hepatic duct, dilated intrahepatic bile ducts. Subsequent images document placement of a plastic endobiliary stent Impression: Intraoperative imaging, as described
[2016-10-08] VITALS: BP 105/67
[2016-10-08] MEDS: DiphenhydrAMINE 50mg/ml Inj IVP PRN ×4 (02:30→19:34)
[2016-10-08 04:00] VITALS: BP 104/58
[2016-10-08] MEDS: Piperacillin/Tazobactam 3.375 GM in D5W 110 ML IVPB SCH ×3 (05:46→21:08)
[2016-10-08] MEDS: HydrOXYzine 50mg cap ORAL PRN ×2 (05:48→21:08)
[2016-10-08 07:14] LABS: BASOPHILS % (AUTO) 0.7 % (0.0-2.0); EOSINOPHILS % (AUTO) 1.5 % (0.0-3.0); LYMPHOCYTES % (AUTO) 19.4 % (20.0-45.0); MEAN CORPUSCULAR HEMOGLOBIN 32.1 PG (27.0-31.0); MEAN CORPUSCULAR HGB CONC 32.9 G/DL (32.0-36.0); MEAN CORPUSCULAR VOLUME 97 FL (80-99); MEAN PLATELET VOLUME 8.6 FL (6.5-10.1); MONOCYTES % (AUTO) 8.1 % (1.0-10.0); NEUTROPHILS % (AUTO) 70.4 % (45.0-75.0); PLATELET COUNT 261 K/UL (150-450); RED BLOOD COUNT 3.51 M/UL (4.70-6.10); RED CELL DISTRIBUTION WIDTH 14.9 % (11.6-14.8); WHITE BLOOD COUNT 10.8 K/UL (4.8-10.8)
[2016-10-08 07:26] LABS: ALANINE AMINOTRANSFERASE 48 U/L (3-41); AMYLASE 209 U/L (10-110); ANION GAP 17 (5-15); ASPARTATE AMINO TRANSFERASE 51 U/L (5-40); CALCIUM 8.6 mg/dL (8.6-10.2); CARBON DIOXIDE 21 mEQ/L (20-30); CHLORIDE 102 mEQ/L (98-107); CREATININE 1.8 mg/dL (0.7-1.2); HEMOLYSIS 0; LIPASE 99 U/L (< 60); POTASSIUM 3.5 mEQ/L (3.4-4.9); SODIUM 140 mEQ/L (135-145); TOTAL PROTEIN 5.2 g/dL (6.6-8.7)
[2016-10-08 08:04] VITALS: BP 110/50
[2016-10-08 08:17] LABS: BILIRUBIN,DIRECT 16.5 mg/dL (0.1-0.3)
[2016-10-08] MEDS: Heparin 5000 units/ml inj SUBQ SCH ×2 (08:31→21:09)
[2016-10-08] MEDS: Pantoprazole Inj IVP SCH (08:31)
[2016-10-08 12:09] VITALS: BP 105/65
--- NOTE | 2016-10-08 13:39 | GI Progress Note ---
Assessment/Plan Problems: (1) Severe malnutrition ICD Codes: E43 - Unspecified severe protein-calorie malnutrition SNOMED: 61005287 (2) Obstructive jaundice ICD Codes: K83.8 - Other specified diseases of biliary tract SNOMED: 64598280 (3) Hypoalbuminemia ICD Codes: E88.09 - Other disorders of plasma-protein metabolism, not elsewhere classified SNOMED: 631139768 (4) Suspected malignant neoplasm ICD Codes: C80.1 - Malignant (primary) neoplasm, unspecified SNOMED: 983136587 Status: stable Status Narrative Discussed with Dr. Clifford. Assessment/Plan s/p ERCP >> biliary stricture with stent placement fu biopsy adv diet today cont ppi monitor LFTs repeat amylase lipase fu labs recommend oncology consult Subjective Gastrointestinal/Abdominal: Reports: abdominal pain Objective Last 24 Hour Vital Signs Date Time Temp Pulse Resp B/P Pulse Ox O2 Delivery O2 Flow Rate FiO2 10/08/16 12:09 97.6 69 20 105/65 99 Room Air 10/08/16 08:04 98.1 65 20 110/50 99 Room Air 10/08/16 04:00 97.9 63 18 104/58 98 Room Air 10/08/16 00:00 98.1 71 18 105/67 98 Room Air 10/07/16 19:00 98.1 69 20 123/72 99 Room Air 10/07/16 16:00 96.8 76 20 134/77 99 Room Air Intake and Output 10/07/16 10/08/16 19:00 07:00 Intake Total 982.5 ml 752.5 ml Output Total 0 ml Balance 982.5 ml 752.5 ml Intake Oral 240 ml IV Total 982.5 ml 512.5 ml Estimated Blood Loss 0 ml # Voids 7 # Bowel Movements 1 Laboratory Tests Test 10/08/16 04:55 White Blood Count 10.8 K/UL (4.8-10.8) Red Blood Count 3.51 M/UL (4.70-6.10) L Hemoglobin 11.3 G/DL (14.2-18.0) L Hematocrit 34.2 % (42.0-52.0) L Mean Corpuscular Volume 97 FL (80-99) Mean Corpuscular Hemoglobin 32.1 PG (27.0-31.0) H Mean Corpuscular Hemoglobin Concent 32.9 G/DL (32.0-36.0) Red Cell Distribution Width 14.9 % (11.6-14.8) H Platelet Count 261 K/UL (150-450) Mean Platelet Volume 8.6 FL (6.5-10.1) Neutrophils (%) (Auto) 70.4 % (45.0-75.0) Lymphocytes (%) (Auto) 19.4 % (20.0-45.0) L Monocytes (%) (Auto) 8.1 % (1.0-10.0) Eosinophils (%) (Auto) 1.5 % (0.0-3.0) Basophils (%) (Auto) 0.7 % (0.0-2.0) Sodium Level 140 mEQ/L (135-145) Potassium Level 3.5 mEQ/L (3.4-4.9) Chloride Level 102 mEQ/L (98-107) Carbon Dioxide Level 21 mEQ/L (20-30) Anion Gap 17 (5-15) H Blood Urea Nitrogen 20 mg/dL (7-23) Creatinine 1.8 mg/dL (0.7-1.2) H Estimat Glomerular Filtration Rate mL/min (>60) Glucose Level 99 mg/dL (74-106) Calcium Level 8.6 mg/dL (8.6-10.2) Total Bilirubin 23.4 mg/dL (0.0-1.2) H Direct Bilirubin 16.5 mg/dL (0.1-0.3) H Aspartate Amino Transf (AST/SGOT) 51 U/L (5-40) H Alanine Aminotransferase (ALT/SGPT) 48 U/L (3-41) H Alkaline Phosphatase 246 U/L (40-129) H Total Protein 5.2 g/dL (6.6-8.7) L Albumin 2.6 g/dL (3.5-5.2) L Globulin 2.6 g/dL Albumin/Globulin Ratio 1.0 (1.0-2.7) Amylase Level 209 U/L (10-110) H Lipase 99 U/L (< 60) H Height (Feet): 6 Height (Inches): 2.00 Weight (Pounds): 165 General Appearance: no apparent distress, alert, thin Cardiovascular: normal rate Respiratory/Chest: normal breath sounds Abdominal Exam: normal bowel sounds, non tender, soft Extremities: normal range of motion Objective Endoscopy Procedure Note Indication for Procedure: juandice Procedures Performed: ERCP Operative Findings/Diagnosis: biliary stricture Mansi Jordan N.P. Oct 08, 2016 13:39
[2016-10-08] MEDS: D5NS 1,000 ML IV SCH (14:50)
--- NOTE | 2016-10-08 15:58 | Procedure Note ---
DATE OF PROCEDURE: 10/07/2016 SURGEON: Scott Clifford M.D. PROCEDURE: ERCP with sphincterotomy, brush biopsy, and stent placement. ANESTHESIOLOGIST: Stanislav Isaacs M.D. INSTRUMENT: Olympus adult flexible ERCP scope. INDICATION: Biliary obstruction and jaundice. REASON FOR PROCEDURE: The procedure, risks, benefits, and possible consequences, including hemorrhage, aspiration, perforation and infection, and alternative treatments, were explained to the patient/legal guardian by Dr. Scott Clifford and the patient/legal guardian understood and accepted these risks. DESCRIPTION OF PROCEDURE: After informed consent was obtained and the patient was adequately sedated, the ERCP scope was advanced from the mouth into the second portion of duodenum. This was a very, very challenging procedure. It took over two hours. Initially with cannulation, the ampulla 1 o'clock, looking down, so was very, very challenging. After multiple attempts with different cannulation technique, we decided to use a needle knife technique to cut the ampulla open and get access. After we got access to the common bile duct, we realized why it was so difficult because the common bile duct was extremely small and right above the hilum in that area, there was a significant stricture with proximal dilation of intrahepatic duct most probably from malignancy. This is highly suspicious for cholangiocarcinoma. Cystic duct was patent. The contrast went to the gallbladder. Then, over a guidewire we used 95% sphincterotomy. Then, we performed a brush biopsy in the stricture area. Then, we placed a 7-Croatian 9 cm stent bypassing this stricture. SUMMARY OF FINDINGS: 1. Challenging case, took over two hours. 2. 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 RECOMMENDATIONS: 1. Followup laboratories. 2. Start liquid diet and advance as tolerated. 3. Followup biopsy results. 4. The patient most probably will benefit from Oncology evaluation. Scott Clifford M.D. DR: GENE JOB#: [id number] CC:
[2016-10-08 16:00] VITALS: BP 103/57
--- NOTE | 2016-10-08 17:46 | General Progress Note ---
Assessment/Plan Problem List: (1) Suspected malignant neoplasm ICD Codes: C80.1 - Malignant (primary) neoplasm, unspecified SNOMED: 818187891 (2) Bed bug bite ICD Codes: W57.XXXA - Bitten or stung by nonvenomous insect and other nonvenomous arthropods, initial encounter SNOMED: 472343063, 224505886 (3) Obstructive jaundice ICD Codes: K83.8 - Other specified diseases of biliary tract SNOMED: 21197547 Status: stable, progressing Assessment/Plan follow up biopsy results monitor lfts benaadryl and atarax for itching onc eval Subjective ROS Limited/Unobtainable: No Constitutional: Reports: malaise, weakness HEENT: Reports: no symptoms Cardiovascular: Reports: no symptoms Respiratory: Reports: no symptoms Gastrointestinal/Abdominal: Reports: no symptoms Genitourinary: Reports: no symptoms Neurologic/Psychiatric: Reports: no symptoms Endocrine: Reports: no symptoms Hematologic/Lymphatic: Reports: no symptoms Allergies: Coded Allergies: No Known Allergies (Unverified , 03/04/14) All Systems: reviewed and negative except above Subjective d/w gi. s/p ercp and stent placement. biopsy taken. still itchy and jaundice. bilirubin trending down Objective Last 24 Hour Vital Signs Date Time Temp Pulse Resp B/P Pulse Ox O2 Delivery O2 Flow Rate FiO2 10/08/16 16:00 97.7 70 16 103/57 99 Room Air 10/08/16 12:09 97.6 69 20 105/65 99 Room Air 10/08/16 08:04 98.1 65 20 110/50 99 Room Air 10/08/16 04:00 97.9 63 18 104/58 98 Room Air 10/08/16 00:00 98.1 71 18 105/67 98 Room Air 10/07/16 19:00 98.1 69 20 123/72 99 Room Air Intake and Output 10/07/16 10/08/16 19:00 07:00 Intake Total 982.5 ml 752.5 ml Output Total 0 ml Balance 982.5 ml 752.5 ml Intake Oral 240 ml IV Total 982.5 ml 512.5 ml Estimated Blood Loss 0 ml # Voids 7 # Bowel Movements 1 Laboratory Tests 10/08/16 04:55: White Blood Count 10.8, Red Blood Count 3.51L, Hemoglobin 11.3L, Hematocrit 34.2L, Mean Corpuscular Volume 97, Mean Corpuscular Hemoglobin 32.1H, Mean Corpuscular Hemoglobin Concent 32.9, Red Cell Distribution Width 14.9H, Platelet Count 261, Mean Platelet Volume 8.6, Neutrophils (%) (Auto) 70.4, Lymphocytes (%) (Auto) 19.4L, Monocytes (%) (Auto) 8.1, Eosinophils (%) (Auto) 1.5, Basophils (%) (Auto) 0.7, Sodium Level 140, Potassium Level 3.5, Chloride Level 102, Carbon Dioxide Level 21, Anion Gap 17H, Blood Urea Nitrogen 20, Creatinine 1.8H, Estimat Glomerular Filtration Rate , Glucose Level 99, Calcium Level 8.6, Total Bilirubin 23.4H, Direct Bilirubin 16.5H, Aspartate Amino Transf (AST/SGOT) 51H, Alanine Aminotransferase (ALT/SGPT) 48H, Alkaline Phosphatase 246H, Total Protein 5.2L, Albumin 2.6L, Globulin 2.6, Albumin/ Globulin Ratio 1.0, Amylase Level 209H, Lipase 99H Height (Feet): 6 Height (Inches): 2.00 Weight (Pounds): 165 General Appearance: WD/WN, alert, thin EENT: scleral icterus Neck: non-tender, normal alignment, supple Cardiovascular: normal rate, regular rhythm Respiratory/Chest: chest wall non-tender, lungs clear, normal breath sounds, no respiratory distress, no accessory muscle use Abdomen: normal bowel sounds, non tender, soft, no organomegaly Edema: no edema noted Arm (L), no edema noted Arm (R), no edema noted Leg (L), no edema noted Leg (R), no edema noted Pedal (L), no edema noted Pedal (R), no edema noted 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
[2016-10-08] MEDS ORDERED: Lactulose 20gm/30ml UDC ORAL PRN (19:15)
[2016-10-08 20:00] VITALS: BP 123/66
[2016-10-09] VITALS: BP 119/75
[2016-10-09] MEDS: D5NS 1,000 ML IV SCH ×2 (03:49→17:30)
[2016-10-09 04:00] VITALS: BP 122/70
[2016-10-09] MEDS: Piperacillin/Tazobactam 3.375 GM in D5W 110 ML IVPB SCH ×3 (05:29→21:54)
[2016-10-09 07:38] LABS: ALANINE AMINOTRANSFERASE 44 U/L (3-41); ANION GAP 13 (5-15); ASPARTATE AMINO TRANSFERASE 46 U/L (5-40); CALCIUM 8.7 mg/dL (8.6-10.2); CARBON DIOXIDE 25 mEQ/L (20-30); CHLORIDE 103 mEQ/L (98-107); CREATININE 1.7 mg/dL (0.7-1.2); HEMOLYSIS 0; POTASSIUM 3.7 mEQ/L (3.4-4.9); SODIUM 141 mEQ/L (135-145); TOTAL PROTEIN 5.2 g/dL (6.6-8.7)
[2016-10-09 08:13] LABS: LYMPHOCYTES % (AUTO) 14.4 % (20.0-45.0); MEAN CORPUSCULAR HEMOGLOBIN 31.2 PG (27.0-31.0); MEAN CORPUSCULAR HGB CONC 32.4 G/DL (32.0-36.0); MEAN CORPUSCULAR VOLUME 96 FL (80-99); MEAN PLATELET VOLUME 8.7 FL (6.5-10.1); MONOCYTES % (AUTO) 11.8 % (1.0-10.0); NEUTROPHILS % (AUTO) 69.8 % (45.0-75.0); PLATELET COUNT 264 K/UL (150-450); RED BLOOD COUNT 3.48 M/UL (4.70-6.10); RED CELL DISTRIBUTION WIDTH 15.3 % (11.6-14.8); WHITE BLOOD COUNT 7.6 K/UL (4.8-10.8)
[2016-10-09 08:22] VITALS: BP 111/69
[2016-10-09 09:00] LABS: AMYLASE 99 U/L (10-110); LIPASE 64 U/L (< 60)
[2016-10-09 09:01] LABS: BILIRUBIN,DIRECT 14.2 mg/dL (0.1-0.3)
[2016-10-09] MEDS: DiphenhydrAMINE 50mg/ml Inj IVP PRN ×3 (09:46→20:13)
[2016-10-09] MEDS: Pantoprazole Inj IVP SCH (09:46)
[2016-10-09] MEDS: Heparin 5000 units/ml inj SUBQ SCH ×2 (09:47→20:15)
--- NOTE | 2016-10-09 09:56 | General Progress Note ---
Assessment/Plan Problem List: (1) Suspected malignant neoplasm ICD Codes: C80.1 - Malignant (primary) neoplasm, unspecified SNOMED: 715299987 (2) Bed bug bite ICD Codes: W57.XXXA - Bitten or stung by nonvenomous insect and other nonvenomous arthropods, initial encounter SNOMED: 278432651, 755814488 (3) Obstructive jaundice ICD Codes: K83.8 - Other specified diseases of biliary tract SNOMED: 22217335 Status: stable, progressing Assessment/Plan follow up biopsy results monitor lfts benadryl and atarax for itching onc eval pending biopsy results poc d/w pt Subjective ROS Limited/Unobtainable: No Constitutional: Reports: malaise, weakness HEENT: Reports: no symptoms Cardiovascular: Reports: no symptoms Respiratory: Reports: no symptoms Gastrointestinal/Abdominal: Reports: no symptoms Genitourinary: Reports: no symptoms Neurologic/Psychiatric: Reports: no symptoms Endocrine: Reports: no symptoms Hematologic/Lymphatic: Reports: no symptoms Allergies: Coded Allergies: No Known Allergies (Unverified , 03/04/14) All Systems: reviewed and negative except above Subjective still itchy. no new complaints. no fever or chills. no nausea or vomiting Objective Last 24 Hour Vital Signs Date Time Temp Pulse Resp B/P Pulse Ox O2 Delivery O2 Flow Rate FiO2 10/09/16 08:22 97.9 73 19 111/69 98 Room Air 10/09/16 04:00 98.1 66 18 122/70 97 Room Air 10/09/16 00:00 98.1 67 18 119/75 99 Room Air 10/08/16 20:00 97.9 71 19 123/66 99 Room Air 10/08/16 16:00 97.7 70 16 103/57 99 Room Air 10/08/16 12:09 97.6 69 20 105/65 99 Room Air Intake and Output 10/08/16 10/09/16 19:00 07:00 Intake Total 850.0 ml 362.5 ml Balance 850.0 ml 362.5 ml Intake Oral 440 ml IV Total 410.0 ml 362.5 ml # Voids 2 5 # Bowel Movements 1 4 Laboratory Tests 10/09/16 06:20: White Blood Count 7.6, Red Blood Count 3.48L, Hemoglobin 10.8L, Hematocrit 33.4L , Mean Corpuscular Volume 96, Mean Corpuscular Hemoglobin 31.2H, Mean Corpuscular Hemoglobin Concent 32.4, Red Cell Distribution Width 15.3H, Platelet Count 264, Mean Platelet Volume 8.7, Neutrophils (%) (Auto) 69.8, Lymphocytes (%) (Auto) 14.4L, Monocytes (%) (Auto) 11.8H, Eosinophils (%) (Auto ) 3.0, Basophils (%) (Auto) 1.0, Sodium Level 141, Potassium Level 3.7, Chloride Level 103, Carbon Dioxide Level 25, Anion Gap 13, Blood Urea Nitrogen 18, Creatinine 1.7H, Estimat Glomerular Filtration Rate , Glucose Level 95, Calcium Level 8.7, Total Bilirubin 21.2H, Direct Bilirubin 14.2H, Aspartate Amino Transf (AST/SGOT) 46H, Alanine Aminotransferase (ALT/SGPT) 44H, Alkaline Phosphatase 231H, Total Protein 5.2L, Albumin 2.6L, Globulin 2.6, Albumin/ Globulin Ratio 1.0, Amylase Level 99, Lipase 64H Height (Feet): 6 Height (Inches): 2.00 Weight (Pounds): 165 Objective General Appearance: WD/WN, alert, thin EENT: scleral icterus Neck: non-tender, normal alignment, supple Cardiovascular: normal rate, regular rhythm Respiratory/Chest: chest wall non-tender, lungs clear, normal breath sounds, no respiratory distress, no accessory muscle use Abdomen: normal bowel sounds, non tender, soft, no organomegaly Edema: no edema noted Arm (L), no edema noted Arm (R), no edema noted Leg (L), no edema noted Leg (R), no edema noted Pedal (L), no edema noted Pedal (R), no edema noted 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
[2016-10-09 12:28] VITALS: BP 119/60
--- NOTE | 2016-10-09 14:18 | General Progress Note ---
Assessment/Plan Assessment/Plan Assessment/Plan (1) Severe malnutrition ICD Codes: E43 - Unspecified severe protein-calorie malnutrition SNOMED: 47768463 (2) Obstructive jaundice - suspect cholangioCA ICD Codes: K83.8 - Other specified diseases of biliary tract SNOMED: 96706620 (3) Hypoalbuminemia ICD Codes: E88.09 - Other disorders of plasma-protein metabolism, not elsewhere classified SNOMED: 001349858 (4) Suspected malignant neoplasm ICD Codes: C80.1 - Malignant (primary) neoplasm, unspecified SNOMED: 791213502 Status: stable Assessment/Plan s/p ERCP >> biliary stricture with stent placement fu biopsy cont ppi monitor LFTs fu labs recommend oncology consult Subjective Allergies: Coded Allergies: No Known Allergies (Unverified , 03/04/14) Subjective Feels OK no abdominal pain tolerating PO s/p ERCP and Stent Objective Last 24 Hour Vital Signs Date Time Temp Pulse Resp B/P Pulse Ox O2 Delivery O2 Flow Rate FiO2 10/09/16 12:28 97.6 65 19 119/60 96 Room Air 10/09/16 08:22 97.9 73 19 111/69 98 Room Air 10/09/16 04:00 98.1 66 18 122/70 97 Room Air 10/09/16 00:00 98.1 67 18 119/75 99 Room Air 10/08/16 20:00 97.9 71 19 123/66 99 Room Air 10/08/16 16:00 97.7 70 16 103/57 99 Room Air Intake and Output 10/08/16 10/09/16 19:00 07:00 Intake Total 850.0 ml 362.5 ml Balance 850.0 ml 362.5 ml Intake Oral 440 ml IV Total 410.0 ml 362.5 ml # Voids 2 5 # Bowel Movements 1 4 Laboratory Tests 10/09/16 06:20: White Blood Count 7.6, Red Blood Count 3.48L, Hemoglobin 10.8L, Hematocrit 33.4L , Mean Corpuscular Volume 96, Mean Corpuscular Hemoglobin 31.2H, Mean Corpuscular Hemoglobin Concent 32.4, Red Cell Distribution Width 15.3H, Platelet Count 264, Mean Platelet Volume 8.7, Neutrophils (%) (Auto) 69.8, Lymphocytes (%) (Auto) 14.4L, Monocytes (%) (Auto) 11.8H, Eosinophils (%) (Auto ) 3.0, Basophils (%) (Auto) 1.0, Sodium Level 141, Potassium Level 3.7, Chloride Level 103, Carbon Dioxide Level 25, Anion Gap 13, Blood Urea Nitrogen 18, Creatinine 1.7H, Estimat Glomerular Filtration Rate , Glucose Level 95, Calcium Level 8.7, Total Bilirubin 21.2H, Direct Bilirubin 14.2H, Aspartate Amino Transf (AST/SGOT) 46H, Alanine Aminotransferase (ALT/SGPT) 44H, Alkaline Phosphatase 231H, Total Protein 5.2L, Albumin 2.6L, Globulin 2.6, Albumin/ Globulin Ratio 1.0, Amylase Level 99, Lipase 64H Height (Feet): 6 Height (Inches): 2.00 Weight (Pounds): 165 Objective WDWN AA man NCAT supple CTA RRR Soft ND NT no edema non focal BRANT ALONZO Oct 09, 2016 14:18
[2016-10-09 16:25] VITALS: BP 123/74
[2016-10-09] MEDS ORDERED: Tubing IV Secondary IV ONE (18:00)
[2016-10-09] MEDS ORDERED: D5NS 1000ml IV ONE (18:00)
[2016-10-09 20:00] VITALS: BP 130/76
[2016-10-10] VITALS: BP 119/74
[2016-10-10] MEDS: DiphenhydrAMINE 50mg/ml Inj IVP PRN ×3 (03:28→16:06)
[2016-10-10 04:00] VITALS: BP 114/67
[2016-10-10] MEDS: Piperacillin/Tazobactam 3.375 GM in D5W 110 ML IVPB SCH ×3 (06:27→22:58)
[2016-10-10] MEDS: D5NS 1,000 ML IV SCH ×2 (06:30→20:49)
[2016-10-10 08:22] VITALS: BP 111/73
[2016-10-10] MEDS: Pantoprazole Inj IVP SCH (08:40)
[2016-10-10] MEDS: Heparin 5000 units/ml inj SUBQ SCH ×2 (08:43→20:50)
[2016-10-10 11:31] VITALS: BP 113/72
[2016-10-10] MEDS ORDERED: D5NS 1000ml IV ONE (11:45)
--- NOTE | 2016-10-10 12:57 | General Progress Note ---
Assessment/Plan Problem List: (1) Suspected malignant neoplasm ICD Codes: C80.1 - Malignant (primary) neoplasm, unspecified SNOMED: 360999370 (2) Bed bug bite ICD Codes: W57.XXXA - Bitten or stung by nonvenomous insect and other nonvenomous arthropods, initial encounter SNOMED: 808536351, 983121557 (3) Obstructive jaundice ICD Codes: K83.8 - Other specified diseases of biliary tract SNOMED: 89812490 Assessment/Plan follow up biopsy results monitor lfts benadryl and atarax for itching onc eval pending biopsy results check labs dc planning tomorrow poc d/w pt Subjective ROS Limited/Unobtainable: No Constitutional: Reports: malaise, weakness HEENT: Reports: no symptoms Cardiovascular: Reports: no symptoms Respiratory: Reports: no symptoms Gastrointestinal/Abdominal: Reports: no symptoms Genitourinary: Reports: no symptoms Neurologic/Psychiatric: Reports: no symptoms Endocrine: Reports: no symptoms Hematologic/Lymphatic: Reports: no symptoms Allergies: Coded Allergies: No Known Allergies (Unverified , 03/04/14) All Systems: reviewed and negative except above Subjective still itchy. no new complaints. no fever or chills. no nausea or vomiting Objective Last 24 Hour Vital Signs Date Time Temp Pulse Resp B/P Pulse Ox O2 Delivery O2 Flow Rate FiO2 10/10/16 11:31 98.4 60 19 113/72 98 Room Air 10/10/16 08:22 98.1 65 19 111/73 99 Room Air 10/10/16 04:00 98.4 63 17 114/67 97 Room Air 10/10/16 00:00 99.3 66 16 119/74 98 Room Air 10/09/16 20:00 98.2 66 17 130/76 99 Room Air 10/09/16 16:25 97.9 70 16 123/74 97 Room Air Intake and Output 10/09/16 10/10/16 19:00 07:00 Intake Total 942.5 ml 770.0 ml Balance 942.5 ml 770.0 ml Intake Oral 450 ml 360 ml IV Total 492.5 ml 410.0 ml # Voids 2 5 Height (Feet): 6 Height (Inches): 2.00 Weight (Pounds): 165 Objective General Appearance: WD/WN, alert, thin EENT: scleral icterus Neck: non-tender, normal alignment, supple Cardiovascular: normal rate, regular rhythm Respiratory/Chest: chest wall non-tender, lungs clear, normal breath sounds, no respiratory distress, no accessory muscle use Abdomen: normal bowel sounds, non tender, soft, no organomegaly Edema: no edema noted Arm (L), no edema noted Arm (R), no edema noted Leg (L), no edema noted Leg (R), no edema noted Pedal (L), no edema noted Pedal (R), no edema noted 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
[2016-10-10 16:00] VITALS: BP 126/81
[2016-10-10] MEDS: HydrOXYzine 50mg cap ORAL PRN (18:34)
[2016-10-10 19:00] VITALS: BP 125/74
[2016-10-11] VITALS: BP 133/90
[2016-10-11] MEDS: DiphenhydrAMINE 50mg/ml Inj IVP PRN (01:10)
[2016-10-11 04:00] VITALS: BP 119/72
[2016-10-11] MEDS: Piperacillin/Tazobactam 3.375 GM in D5W 110 ML IVPB SCH ×2 (05:01→14:00)
[2016-10-11 07:52] LABS: ALANINE AMINOTRANSFERASE 41 U/L (3-41); ALBUMIN/GLOBULIN RATIO 0.9 (1.0-2.7); ANION GAP 15 (5-15); ASPARTATE AMINO TRANSFERASE 46 U/L (5-40); CALCIUM 8.8 mg/dL (8.6-10.2); CARBON DIOXIDE 24 mEQ/L (20-30); CHLORIDE 100 mEQ/L (98-107); CREATININE 1.4 mg/dL (0.7-1.2); HEMOLYSIS 0; POTASSIUM 3.2 mEQ/L (3.4-4.9); SODIUM 139 mEQ/L (135-145); TOTAL PROTEIN 5.6 g/dL (6.6-8.7)
[2016-10-11 08:01] VITALS: BP 117/70
[2016-10-11 08:17] LABS: BILIRUBIN,DIRECT 12.5 mg/dL (0.1-0.3)
[2016-10-11] MEDS: Pantoprazole Inj IVP SCH (08:28)
[2016-10-11] MEDS: Heparin 5000 units/ml inj SUBQ SCH (08:31)
[2016-10-11] MEDS: D5NS 1,000 ML IV SCH (09:30)
--- NOTE | 2016-10-11 11:50 | GI Progress Note ---
Assessment/Plan Problems: (1) Severe malnutrition ICD Codes: E43 - Unspecified severe protein-calorie malnutrition SNOMED: 01646298 (2) Obstructive jaundice ICD Codes: K83.8 - Other specified diseases of biliary tract SNOMED: 33297957 (3) Hypoalbuminemia ICD Codes: E88.09 - Other disorders of plasma-protein metabolism, not elsewhere classified SNOMED: 490660556 (4) Suspected malignant neoplasm ICD Codes: C80.1 - Malignant (primary) neoplasm, unspecified SNOMED: 296628589 Status: stable, progressing Status Narrative Discussed with Dr. Clifford. Assessment/Plan s/p ERCP >> biliary stricture with stent placement fu biopsy cont ppi monitor LFTs repeat amylase lipase fu labs recommend oncology consult Subjective Gastrointestinal/Abdominal: Reports: abdominal pain - improved, no symptoms Objective Last 24 Hour Vital Signs Date Time Temp Pulse Resp B/P Pulse Ox O2 Delivery O2 Flow Rate FiO2 10/11/16 08:01 98.1 66 20 117/70 95 Room Air 10/11/16 04:00 97.2 64 18 119/72 97 Room Air 10/11/16 00:00 97.9 64 18 133/90 98 Room Air 10/10/16 19:00 98.1 66 20 125/74 99 Room Air 10/10/16 16:00 97.9 74 20 126/81 97 Room Air Intake and Output 10/10/16 10/11/16 19:00 07:00 Intake Total 1170.0 ml 527.5 ml Output Total 700 ml 350 ml Balance 470.0 ml 177.5 ml Intake Oral 650 ml 240 ml IV Total 520.0 ml 287.5 ml Output Urine Total 700 ml 350 ml # Voids 1 4 # Bowel Movements 2 Laboratory Tests Test 10/11/16 06:39 Sodium Level 139 mEQ/L (135-145) Potassium Level 3.2 mEQ/L (3.4-4.9) L Chloride Level 100 mEQ/L (98-107) Carbon Dioxide Level 24 mEQ/L (20-30) Anion Gap 15 (5-15) Blood Urea Nitrogen 15 mg/dL (7-23) Creatinine 1.4 mg/dL (0.7-1.2) H Estimat Glomerular Filtration Rate mL/min (>60) Glucose Level 86 mg/dL (74-106) Calcium Level 8.8 mg/dL (8.6-10.2) Total Bilirubin 17.6 mg/dL (0.0-1.2) H Direct Bilirubin 12.5 mg/dL (0.1-0.3) H Aspartate Amino Transf (AST/SGOT) 46 U/L (5-40) H Alanine Aminotransferase (ALT/SGPT) 41 U/L (3-41) Alkaline Phosphatase 186 U/L (40-129) H Total Protein 5.6 g/dL (6.6-8.7) L Albumin 2.7 g/dL (3.5-5.2) L Globulin 2.9 g/dL Albumin/Globulin Ratio 0.9 (1.0-2.7) L Height (Feet): 6 Height (Inches): 2.00 Weight (Pounds): 165 General Appearance: no apparent distress Cardiovascular: normal rate Respiratory/Chest: normal breath sounds Abdominal Exam: normal bowel sounds, non tender, soft Objective Endoscopy Procedure Note Indication for Procedure: juandice Procedures Performed: ERCP Operative Findings/Diagnosis: biliary stricture Mansi Jordan N.P. Oct 11, 2016 11:50
[2016-10-11 11:57] VITALS: BP 128/70
[2016-10-11] MEDS ORDERED: D5NS 1000ml IV ONE (15:19)
[2016-10-11] MEDS ORDERED: Tubing IV Secondary IV ONE (15:19)
--- NOTE | 2016-10-12 00:08 | Discharge Summary ---
DATE OF ADMISSION: 10/06/2016 DATE OF DISCHARGE: 10/11/2016 ADMISSION DIAGNOSIS: Painless jaundice. DISCHARGE DIAGNOSES: 1. Obstructive jaundice. 2. Possible biliary cancer. 3. Pleuritis. HISTORY OF PRESENT ILLNESS/HOSPITAL COURSE: The patient is an unfortunate male, admitted with painless jaundice. He underwent to ERCP . He did have elevated tumor markers still pending on discharge. The patient was improving. He was discharged home in stable condition. He will follow up in one week for followup. DISCHARGE MEDICATIONS: Please see discharge medication list for discharge medications. DIET: A regular diet. ACTIVITY: Ad-vini. Cristino Kang M.D. DR: NATASHA JOB#: [id number] CC:
== END 2016-10-11 15:20 | disposition home or self-care (01) | DRG 435 ==
LOC: EMR 05:30 → 4E 06:56 → EDBEDREQ 08:29
DX: C24.9 Malignant neoplasm of biliary tract, unspecified (principal); E43 Unspecified severe protein-calorie malnutrition; K83.1 Obstruction of bile duct; R09.1 Pleurisy; E88.09 Other disorders of plasma-protein metabolism, not elsewhere classified; T14.8 Other injury of unspecified body region; W57.XXXA Bitten or stung by nonvenomous insect and other nonvenomous arthropods, initial encounter
CPT/HCPCS: 36415; 74328; 76000; 76700; 80053; 81003; 82150; 82248; 82378; 83690; 85025; 85610; 85730; 86301; 86850; 86900; 86901; 94003; 94150; J2405; J8499

== ENCOUNTER → 2016-10-19 | Outpatient (CLI) | payer MEDICARE, OTHER ==
[2016-10-19 10:50] VITALS: BP 115/67
--- NOTE | 2016-10-19 10:57 | General Progress Note ---
Assessment/Plan Problem List: (1) Obstructive jaundice ICD Codes: K83.8 - Other specified diseases of biliary tract SNOMED: 07476408 Assessment/Plan plan repeat ercp on Tuesday Subjective ROS Limited/Unobtainable: Yes Allergies: Coded Allergies: No Known Allergies (Unverified , 03/04/14) Subjective no abd pain Objective Last 24 Hour Vital Signs Date Time Temp Pulse Resp B/P Pulse Ox O2 Delivery O2 Flow Rate FiO2 10/19/16 10:50 98.2 72 16 115/67 General Appearance: alert EENT: scleral icterus Neck: supple Cardiovascular: normal rate Respiratory/Chest: lungs clear Abdomen: normal bowel sounds, non tender, soft Extremities: non-tender AURY SAMS Oct 19, 2016 10:56
== END | disposition home or self-care (01) ==
LOC: PAN 10:29
DX: K83.8 Other specified diseases of biliary tract (principal)
CPT/HCPCS: 99211

== ENCOUNTER → 2016-10-25 | Day surgery (SDC) | payer MEDICARE, OTHER ==
[2016-10-25] VITALS (9 sets, daily range): BP systolic 99–114; BP diastolic 54–70
[~2016-10-25] VITALS: Ht 188 cm; Wt 72.6 kg
[~2016-10-25] MED LIST changes: +Atropine Inj 1mg/10ml Syr IV PRN; +Cefepime 1gm vial ONE; +Cefepime HCl 1 GM in D5W 55 ML IVPB ONE; +DiphenhydrAMINE 50mg/ml Inj IVP PRN; +Hydromorphone 0.5mg/0.5ml inj IVP PRN; +Iothalamate Meglumine 60% 30ML INJ ONE; +Ketorolac 30mg Inj IV PRN; +Ketorolac 60mg Inj IV PRN; +LORazepam Inj 2mg/ml 1ml IV PRN; +LR 1000ml 1,000 ML IVLG SCH; +Labetalol 5mg/ml 20ml vial IV PRN; +Lidocaine 1% MPF 10mg/ml 5ml ONE; +Meperidine 25mg/ml Inj IV PRN; +Metoclopramide 10mg/2ml Inj IVP PRN; +Midazolam 2mg/2ml Inj IVP PRN; +Norco 5mg/325mg tab ORAL PRN; +Norco 7.5mg/325mg tab ORAL PRN; +Oxycodone/Acetaminophen 5-325 ORAL PRN; +Propofol 10mg/ml 20ml IV ONE; +fentaNYL 100 mcg/2 mL IV PRN
[2016-10-25 08:03] LABS: EOSINOPHILS % (AUTO) 1.1 % (0.0-3.0); MEAN CORPUSCULAR HEMOGLOBIN 31.4 PG (27.0-31.0); MEAN CORPUSCULAR HGB CONC 33.1 G/DL (32.0-36.0); MEAN CORPUSCULAR VOLUME 95 FL (80-99); MEAN PLATELET VOLUME 6.2 FL (6.5-10.1); MONOCYTES % (AUTO) 10.8 % (1.0-10.0); NEUTROPHILS % (AUTO) 81.2 % (45.0-75.0); PLATELET COUNT 451 K/UL (150-450); RED BLOOD COUNT 3.76 M/UL (4.70-6.10); RED CELL DISTRIBUTION WIDTH 14.7 % (11.6-14.8); WHITE BLOOD COUNT 11.5 K/UL (4.8-10.8)
[2016-10-25 08:07] LABS: INR 1.1 (0.9-1.1); PROTHROMBIN TIME 10.8 SEC (9.30-11.50)
[2016-10-25 08:13] LABS: ALANINE AMINOTRANSFERASE 61 U/L (3-41); ALBUMIN/GLOBULIN RATIO 0.8 (1.0-2.7); AMYLASE 76 U/L (10-110); ANION GAP 20 (5-15); ASPARTATE AMINO TRANSFERASE 60 U/L (5-40); CALCIUM 9.8 mg/dL (8.6-10.2); CARBON DIOXIDE 21 mEQ/L (20-30); CHLORIDE 98 mEQ/L (98-107); CREATININE 1.9 mg/dL (0.7-1.2); HEMOLYSIS 0; LIPASE 70 U/L (< 60); POTASSIUM 3.6 mEQ/L (3.4-4.9); SODIUM 139 mEQ/L (135-145)
[2016-10-25 08:26] LABS: BILIRUBIN,DIRECT > 20.0 mg/dL (0.1-0.3)
--- NOTE | 2016-10-25 08:51 | Anethesia Preoperative Eval ---
Anesthesia Pre-op PMH/ROS General Date of Evaluation: Oct 25, 2016 Time of Evaluation: 08:56 Anesthesiologist: Shital ASA Score: ASA 3 Mallampati Score Class I : Soft palate, uvula, fauces, pillars visible Class II: Soft palate, uvula, fauces visible Class III: Soft palate, base of uvula visible Class IV: Only hard plate visible Mallampati Classification: Class II Surgeon: Darrin Diagnosis: Hepatobiliary Obstruction Surgical Procedure: ERCP Anesthesia History: none Family History: no anesthesia problems Allergies: Coded Allergies: No Known Allergies (Unverified , 03/04/14) Medications: see eMAR Past Medical History Gastrointestinal/Genitourinary: Reports: other - Hepatobiliary Obstruction Hematology/Immune: Reports: anemia Anesthesia Pre-op Phys. Exam Physician Exam Last Vital Signs Date Time Temp Pulse Resp B/P Pulse Ox O2 Delivery O2 Flow Rate FiO2 10/25/16 07:17 96.9 87 18 114/69 100 Room Air Constitutional: NAD Neurologic: CN 2-12 intact Cardiovascular: RRR Respiratory: CTA Gastrointestinal: S/NT/ND Airway Exam Mallampati Score: Class II MO: full ROM: limited Teeth: intact Anesthesia Pre-op A/P Labs Hematology Test 10/25/16 07:25 White Blood Count 11.5 K/UL (4.8-10.8) H Red Blood Count 3.76 M/UL (4.70-6.10) L Hemoglobin 11.8 G/DL (14.2-18.0) L Hematocrit 35.7 % (42.0-52.0) L Mean Corpuscular Volume 95 FL (80-99) Mean Corpuscular Hemoglobin 31.4 PG (27.0-31.0) H Mean Corpuscular Hemoglobin Concent 33.1 G/DL (32.0-36.0) Red Cell Distribution Width 14.7 % (11.6-14.8) Platelet Count 451 K/UL (150-450) H Mean Platelet Volume 6.2 FL (6.5-10.1) L Neutrophils (%) (Auto) 81.2 % (45.0-75.0) H Lymphocytes (%) (Auto) 6.0 % (20.0-45.0) L Monocytes (%) (Auto) 10.8 % (1.0-10.0) H Eosinophils (%) (Auto) 1.1 % (0.0-3.0) Basophils (%) (Auto) 1.0 % (0.0-2.0) Coagulation Test 10/25/16 07:25 Prothrombin Time 10.8 SEC (9.30-11.50) Prothromb Time International Ratio 1.1 (0.9-1.1) Activated Partial Thromboplast Time 28 SEC (23-33) Chemistry Test 10/25/16 07:25 Sodium Level 139 mEQ/L (135-145) Potassium Level 3.6 mEQ/L (3.4-4.9) Chloride Level 98 mEQ/L (98-107) Carbon Dioxide Level 21 mEQ/L (20-30) Anion Gap 20 (5-15) H Blood Urea Nitrogen 23 mg/dL (7-23) Creatinine 1.9 mg/dL (0.7-1.2) H Estimat Glomerular Filtration Rate mL/min (>60) Glucose Level 129 mg/dL (74-106) H Calcium Level 9.8 mg/dL (8.6-10.2) Total Bilirubin 29.2 mg/dL (0.0-1.2) H Direct Bilirubin > 20.0 mg/dL (0.1-0.3) H Aspartate Amino Transf (AST/SGOT) 60 U/L (5-40) H Alanine Aminotransferase (ALT/SGPT) 61 U/L (3-41) H Alkaline Phosphatase 221 U/L (40-129) H Total Protein 7.0 g/dL (6.6-8.7) Albumin 3.3 g/dL (3.5-5.2) L Globulin 3.7 g/dL Albumin/Globulin Ratio 0.8 (1.0-2.7) L Amylase Level 76 U/L (10-110) Lipase 70 U/L (< 60) H Risk Assessment & Plan Assessment: ASA 3 Plan: GA Pre-Antibiotics Dru Gram Cefepime IV Given Within 1 Hr of Incision: Yes Time Given: 09:31 Stanislav Isaacs MD Oct 25, 2016 08:51
--- NOTE | 2016-10-25 08:53 | Immediate Post-Op Evaluation ---
Immediate Post-Op Evalulation Immediate Post-Op Evalulation Procedure: ERCP Date of Evaluation: Oct 25, 2016 Time of Evaluation: 10:37 IV Fluids: 500 Blood Products: 0 Estimated Blood Loss: 4 Urinary Output: 0 Blood Pressure Systolic: 107 Blood Pressure Diastolic: 59 Pulse Rate: 75 Respiratory Rate: 16 O2 Sat by Pulse Oximetry: 100 Temperature (Fahrenheit): 97.7 Pain Score (1-10): 2 Nausea: No Vomiting: No Complications 0 Patient Status: awake, reacts, patent, extubated, none Hydration Status: adequate Dru Gram Cefepime IV Given Within 1 Hr of Incision: Yes Time Given: 09:31 Stanislav Isaacs MD Oct 25, 2016 08:53
--- NOTE | 2016-10-25 08:54 | 48 Hour Post Anesthesia Eval ---
Post Anesthesia Evaluation Procedure: ERCP Date of Evaluation: Oct 25, 2016 Time of Evaluation: 12:46 Blood Pressure Systolic: 112 0: 67 Pulse Rate: 72 Respiratory Rate: 18 Temperature (Fahrenheit): 98.2 O2 Sat by Pulse Oximetry: 100 Airway: patent Nausea: No Vomiting: No Pain Intensity: 2 Hydration Status: adequate Cardiopulmonary Status: Stable Mental Status/LOC: patient returned to baseline Follow-up Care/Observations: 0 Post-Anesthesia Complications: 0 Follow-up care needed: ready to discharge Stanislav Isaacs MD Oct 25, 2016 08:54
--- NOTE | 2016-10-25 09:34 | Pre-Procedure Note/Attestation ---
Pre-Procedure Note/Attestation Complete Prior to Procedure Planned Procedure: not applicable Procedure Narrative: ercp Indications for Procedure Pre-Operative Diagnosis: татьяна Attestation I attest that I discussed the nature of the procedure; its benefits; risks and complications; and alternatives (and the risks and benefits of such alternatives ), prior to the procedure, with the patient (or the patient's legal personal banking representative). I attest that, if there was a reasonable possibility of needing a blood transfusion, the patient (or the patient's legal personal banking representative) was given the [facility] standardized written summary, pursuant to the [place] Blood Safety Act ([place] Health and Safety Code # 1645, as amended). I attest that I re-evaluated the patient just prior to the surgery and that there has been no change in the patient's H&P, except as documented below: AURY SAMS Oct 25, 2016 09:34
--- NOTE | 2016-10-25 09:34 | Short Stay Surgery H&P ---
History of Present Illness History of Present Illness Chief Complaint татьяна Vásquez is a 76 year old male who was admitted on for Jaundice Patient History Allergies: Coded Allergies: No Known Allergies (Unverified , 03/04/14) PAST MEDICAL HISTORY: (1) Obstructive jaundice Past Surgeries: Social History: Medication History Scheduled Hydrocortisone Acetate 1% Onit (Hydrocortisone 1% Oint), 1 APPL TP Q12HR Scheduled PRN Diphenhydramine Hcl* (Benadryl*), 25 MG ORAL Q6H PRN for Itching Review of Systems Cardiovascular: Reports: no symptoms Respiratory: Reports: no symptoms Skeletal: Reports: no symptoms Gastrointestinal: Reports: no symptoms Genitourinary: Reports: no symptoms Endocrine: Reports: no symptoms Physical Exam Vital Signs Last Vital Signs Date Time Temp Pulse Resp B/P Pulse Ox O2 Delivery O2 Flow Rate FiO2 10/25/16 07:17 96.9 87 18 114/69 100 Room Air Labs Laboratory Tests Test 10/25/16 07:25 White Blood Count 11.5 K/UL (4.8-10.8) H Red Blood Count 3.76 M/UL (4.70-6.10) L Hemoglobin 11.8 G/DL (14.2-18.0) L Hematocrit 35.7 % (42.0-52.0) L Mean Corpuscular Volume 95 FL (80-99) Mean Corpuscular Hemoglobin 31.4 PG (27.0-31.0) H Mean Corpuscular Hemoglobin Concent 33.1 G/DL (32.0-36.0) Red Cell Distribution Width 14.7 % (11.6-14.8) Platelet Count 451 K/UL (150-450) H Mean Platelet Volume 6.2 FL (6.5-10.1) L Neutrophils (%) (Auto) 81.2 % (45.0-75.0) H Lymphocytes (%) (Auto) 6.0 % (20.0-45.0) L Monocytes (%) (Auto) 10.8 % (1.0-10.0) H Eosinophils (%) (Auto) 1.1 % (0.0-3.0) Basophils (%) (Auto) 1.0 % (0.0-2.0) Prothrombin Time 10.8 SEC (9.30-11.50) Prothromb Time International Ratio 1.1 (0.9-1.1) Activated Partial Thromboplast Time 28 SEC (23-33) Sodium Level 139 mEQ/L (135-145) Potassium Level 3.6 mEQ/L (3.4-4.9) Chloride Level 98 mEQ/L (98-107) Carbon Dioxide Level 21 mEQ/L (20-30) Anion Gap 20 (5-15) H Blood Urea Nitrogen 23 mg/dL (7-23) Creatinine 1.9 mg/dL (0.7-1.2) H Estimat Glomerular Filtration Rate mL/min (>60) Glucose Level 129 mg/dL (74-106) H Calcium Level 9.8 mg/dL (8.6-10.2) Total Bilirubin 29.2 mg/dL (0.0-1.2) H Direct Bilirubin > 20.0 mg/dL (0.1-0.3) H Aspartate Amino Transf (AST/SGOT) 60 U/L (5-40) H Alanine Aminotransferase (ALT/SGPT) 61 U/L (3-41) H Alkaline Phosphatase 221 U/L (40-129) H Total Protein 7.0 g/dL (6.6-8.7) Albumin 3.3 g/dL (3.5-5.2) L Globulin 3.7 g/dL Albumin/Globulin Ratio 0.8 (1.0-2.7) L Amylase Level 76 U/L (10-110) Lipase 70 U/L (< 60) H Skin: normal HENT: normal Heart: normal Lungs: normal Abdomen: normal Extremities: normal Plan Plan of Care ercp Final Diagnosis: Attestation Are the patient's medical conditions optimized for surgery? Attestation Response: yes AURY SAMS Oct 25, 2016 09:34
--- NOTE | 2016-10-25 10:19 | Endoscopy Procedure Note ---
Endoscopy Procedure Note Indication for Procedure: juandice Procedures Performed: ERCP Operative Findings/Diagnosis: same Specimen: yes Pt Tolerated Procedure Well: Yes Estimated Blood Loss: none Anesthesiologist: yordan Anesthesia: MAC Implant(s) used?: No 50 yrs or older w/o bx or poly: Not Applicable 10yrs. F/U not recommended: Not Applicable ARUY SAMS Oct 25, 2016 10:19
--- NOTE | 2016-10-25 14:34 | Diagnostic Imaging Report ---
Indication: Abnormal liver function tests, abnormal tumor markers, prior abnormal ultrasound and CT scan Technique: Intraprocedural digital images Comparison: 10/07/2016 Findings: Initial image demonstrates a plastic endobiliary stent in place. Subsequent images demonstrate irregular narrowing of the common hepatic duct and dilatation of the intrahepatic bile ducts centrally. Subsequent images demonstrate balloon dilatation of the region of the common hepatic duct, and placement of a new plastic endobiliary stent. Impression: Intraoperative imaging, as described
--- NOTE | 2016-10-25 20:49 | Procedure Note ---
DATE OF PROCEDURE: 10/25/2016 SURGEON: Scott Clifford M.D. PROCEDURE: Endoscopic retrograde cholangiopancreatography with removal of stent, dilation, biopsy and stenting. ANESTHESIA: Stanislav Isaacs M.D. INSTRUMENT: Olympus adult flexible EUS scope. INDICATION: Jaundice and biliary stricture. REASON FOR PROCEDURE: The procedure, risks, benefits, and possible consequences, including hemorrhage, aspiration, perforation and infection, and alternative treatments, were explained to the patient/legal guardian by Dr. Scott Clifford and the patient/legal guardian understood and accepted these risks. PROCEDURE: After informed consent was obtained and the patient was adequately sedated, ERCP scope was advanced from the mouth into second portion of the duodenum. Using a cannula, a wire was placed next to the old stent. Then a snare was used to remove the stent. Then, we used the cannula to get to the common bile duct over a guidewire. Initially showed evidence of short stricture in the mid to the upper common bile duct with significant proximal biliary duct dilatation. Then, over the guidewire we did a brush biopsy. We did a pediatric forceps biopsy. Then, we used a 6 mm balloon dilator to dilate the stricture area. Then, we placed a 10-[place]izen [place] and a 9 cm stent at the stricture area. The patient tolerated the procedure very well without complication. SUMMARY FINDINGS: Biliary stricture status post stent exchange, putting a bigger stent, brush biopsy, simple biopsy and dilatation. RECOMMENDATIONS: Followup biopsy results and treat accordingly. Scott Clifford M.D. DR: JOSE ALBERTO JOB#: [id number] CC:
--- NOTE | 2016-10-28 22:25 | Cardiology Report ---
APPROVED REPORT EKG Measurement Heart [id number] Normal sinus rhythm Prolonged QT Abnormal ECG
== END | disposition home or self-care (01) ==
LOC: GAS 10-22 11:54
DX: K83.1 Obstruction of bile duct (principal); D64.9 Anemia, unspecified
CPT/HCPCS: 36415; 43261; 43276; 74328; 76000; 80053; 82150; 82248; 83690; 85025; 85610; 85730; 86039; 93005; J0692; J2704; Q9961; 94003; 94150

== ENCOUNTER 2017-02-19 12:51 | Emergency (ER) | payer MEDICARE, OTHER ==
[~2017-02-19] VITALS: Ht 188 cm; Wt 77.1 kg
[~2017-02-19 12:51] MED LIST changes: -Atropine Inj 1mg/10ml Syr IV PRN; -Cefepime 1gm vial ONE; -Cefepime HCl 1 GM in D5W 55 ML IVPB ONE; -DiphenhydrAMINE 50mg/ml Inj IVP PRN; -Hydromorphone 0.5mg/0.5ml inj IVP PRN; -Iothalamate Meglumine 60% 30ML INJ ONE; -Ketorolac 30mg Inj IV PRN; -Ketorolac 60mg Inj IV PRN; -LORazepam Inj 2mg/ml 1ml IV PRN; -LR 1000ml 1,000 ML IVLG SCH; -Labetalol 5mg/ml 20ml vial IV PRN; -Lidocaine 1% MPF 10mg/ml 5ml ONE; -Meperidine 25mg/ml Inj IV PRN; -Metoclopramide 10mg/2ml Inj IVP PRN; -Midazolam 2mg/2ml Inj IVP PRN; -Norco 5mg/325mg tab ORAL PRN; -Norco 7.5mg/325mg tab ORAL PRN; -Oxycodone/Acetaminophen 5-325 ORAL PRN; -Propofol 10mg/ml 20ml IV ONE; -fentaNYL 100 mcg/2 mL IV PRN
--- NOTE | 2017-02-19 13:12 | Emergency Room Report ---
History of Present Illness General Chief Complaint: Wound Recheck/Suture Removal Source: Patient Present Illness HPI Per FT Nurse: pt's son wanted to take pt. to alternative hospital. Pt. left prior to being evaluated by me. Allergies: Coded Allergies: No Known Allergies (Unverified , 03/04/14) Nursing Documentation-[facility] Past Medical History: No History, Except For Hx Cardiac Problems: No Hx Hypertension: No Hx Pacemaker: No Hx Asthma: No Hx COPD: No Hx Diabetes: No Hx Cancer: No Hx Gastrointestinal Problems: Yes - hepatobiliary obstruction and surgery done about 3 weeks ago Hx Dialysis: No History Of Psychiatric Problem: Yes - Anxiety Hx Neurological Problems: No Hx Cerebrovascular Accident: No Hx Seizures: No Physical Exam Vital Signs Date Time Temp Pulse Resp B/P Pulse Ox O2 Delivery O2 Flow Rate FiO2 02/19/17 13:03 97.9 78 16 123/76 98 Room Air Medical Decision Making PA Attestation Dr. Ferrer is my supervising Physician whom patient management has been discussed with. ER Course Per FT Nurse: pt's son wanted to take pt. to alternative hospital. Pt. left prior to being evaluated by me. Last Vital Signs Date Time Temp Pulse Resp B/P Pulse Ox O2 Delivery O2 Flow Rate FiO2 02/19/17 13:03 97.9 78 16 123/76 98 Room Air Disposition: LEFT W/OUT BEING SEEN Condition: Unknown Mary Lorenzo Feb 19, 2017 13:12
[2017-02-19 13:13] VITALS: BP 123/76
== END 2017-02-19 13:13 | disposition left against medical advice (07) ==
LOC: EMR 13:11
DX: Z48.02 Encounter for removal of sutures (principal); Z53.21 Procedure and treatment not carried out due to patient leaving prior to being seen by health care provider
CPT/HCPCS: 99281

== ENCOUNTER 2017-05-04 13:10 | Outpatient (CLI) | payer MEDICARE, OTHER ==
--- NOTE | 2017-05-04 14:10 | Diagnostic Imaging Report ---
Indications: hip pain Findings: Two views of the right hip were obtained. No acute fracture is demonstrated. Alignment of the hip is within normal limits. There is narrowing of the right hip joint. Soft tissues are unremarkable. Degenerative changes of lower lumbar spine are noted. Impression: No acute injury
--- NOTE | 2017-05-04 14:28 | Diagnostic Imaging Report ---
Indications: hip pain Findings: Two views of the left hip were obtained. No acute fracture is demonstrated. Alignment of the hip is within normal limits. Soft tissues are unremarkable. Impression: Negative for acute injury.
--- NOTE | 2017-05-04 14:29 | Diagnostic Imaging Report ---
Indication: Trauma. Comparison: None Findings: 4 views of the right chest wall was obtained for evaluation of the ribs. There is a Hill-Sachs deformity of the humeral head. Alignment of the glenohumeral joint is normal. There is no acute fracture. Marginal spurs noted. Bones are osteopenic. Multiple embolic coils are projected over the liver. There is a central venous catheter projected over the SVC. Impression: No acute injury or dislocation. Hill-Sachs deformity noted
== END 2017-05-04 15:10 | disposition home or self-care (01) ==
LOC: RAD 13:10
DX: M54.5 Low back pain (principal); M25.559 Pain in unspecified hip; M85.80 Other specified disorders of bone density and structure, unspecified site
CPT/HCPCS: 73502